=== PATIENT | male | born 1945 | race Caucasian/White ===

== ENCOUNTER 2021-06-07 13:14 | Emergency (ER) | payer OTHER ==
[~2021-06-07] VITALS: Ht 182.9 cm; Wt 64.0 kg
[2021-06-07 13:22] VITALS: BP 123/81
--- NOTE | 2021-06-07 13:49 | NUR ---
76/M SHONNA FROM [facility]. PER EMS STAFF CALLED 911 STATING "THEY RAN OUT OF OXYGEN TANK FOR PATIENT DUE TO INSURANCE REASONS. PT DENIES PAIN, DENIES SOB, DENIES FEVER/CHILLS, DENIES N/V/D, STATING "I FEEL GOOD." PATIENT PLACED ON BEDSIDE ROBOTYPE OPERATOR, DR. STEVENSON AWARE OF PATIENT.
[2021-06-07] MEDS ORDERED: FLUT1DSK2 IH (13:55)
[2021-06-07] MEDS ORDERED: FURO-572 PO (13:55)
[2021-06-07] MEDS ORDERED: VITB12 PO (13:55)
[2021-06-07] MEDS ORDERED: DIGO0.122 PO (13:55)
[2021-06-07] MEDS ORDERED: [UNRECOGNIZED DRUG - CODE] PO (13:55)
[2021-06-07] MEDS ORDERED: ATRN INH (13:55)
[2021-06-07] MEDS ORDERED: ACET-2619 PO ×2 (13:55)
[2021-06-07] MEDS ORDERED: METROPOLO (13:55)
[2021-06-07] MEDS ORDERED: MULT-1301 PO (13:55)
[2021-06-07] MEDS ORDERED: ALBU0.0912 INH (13:55)
[2021-06-07] MEDS ORDERED: DENO60SO SUBQ (13:55)
[2021-06-07] MEDS ORDERED: ASPI-1822 PO (13:55)
[2021-06-07] MEDS ORDERED: VITAMIN D PO (13:55)
[2021-06-07] MEDS ORDERED: VITA1TAB44 PO (13:55)
[2021-06-07] MEDS ORDERED: MONT10TA35 PO (13:55)
[2021-06-07] MEDS ORDERED: FLONAS NS (13:55)
[2021-06-07] MEDS ORDERED: DILT-135 PO (13:55)
[2021-06-07] MEDS ORDERED: DOCU-299 PO (13:55)
[2021-06-07] MEDS ORDERED: METROPOLOL PO (13:55)
[2021-06-07] MEDS ORDERED: TRAM50TA1 PO (13:55)
[2021-06-07] MEDS ORDERED: SIME80TA22 PO (13:56)
[2021-06-07] MEDS ORDERED: SENN-72 PO (13:56)
--- NOTE | 2021-06-07 14:24 | NUR ---
RT AT BEDSIDE
--- NOTE | 2021-06-07 14:34 | NUR ---
FOUND PT ON ROOM AIR, SPO2 RANGED FROM 91-94%.
--- NOTE | 2021-06-07 16:04 | NUR ---
DC PLANNING: ORDERS RECEIVED FOR O2 USE AT PATIENTS [facility]. PATIENTS CONCENTRATOR AND WC WERE PICKED UP BY [facility] DME AND RESPIRATORY FROM [facility]. BARTOLO SPOKE WITH RICKY AT [facility] ([phone] WHO STATES THAT THE ORDERING MD FOR THE O2 CANCELLED THE ORDER IN 2019. BARTOLO SENT THE O2 ORDERS AND SUPPORTING DOCUMENTATION TO [facility], DELIVERY IS EXPECTED LATER TODAY TO [facility] ORDERS FOR WC SENT TO [facility] WITH DELIVERY TO [facility] REQUESTED. BARTOLO SPOKE WITH MALKA AT [facility], DIRECTED HER TO CALL [facility] ED WHEN THE PATIENT'S O2 IS DELIVERED. BARTOLO SPOKE WITH THE TWO CONTRACTED NON-MEDICAL TRANSPORT AGENCIES, [employer] AND [employer], NEITHER ARE ABLE TO TRANSPORT THE PATIENT AFTER 6:30 PM TODAY. IF PATIENT IS READY TO RETURN TO [facility] TOMORROW THE FACILITY NEEDS TO BE CALLED TO PROVIDE TRANSPORT. IF THEY ARE UNABLE TO SHOE PARTS CASER THE PATIENT PLEASE USE [employer], PHONE NUMBER [phone], THEY ARE ABLE TO TRANSPORT WITH O2. PATIENT IS NON-AMBULATORY PER [facility], HE WILL NEED [facility]URNEY TRANSPORT WITH O2. IF THEY ARE UNABLE TO TRANSPORT PLEASE CALL [employer] [facility] AT [phone]. ABOVE WAS ENDORSED TO THE PATIENTS ER NURSE NILE.
--- NOTE | 2021-06-07 16:22 | NUR ---
SPOKE WITH CASE MANAGEMENT, STATED ANTONIO FOUNTAIN WILL CALL US WHEN OXYGEN IS DELIVERED THEN WE CAN SET UP TRANSPORT BACK TO FACILITY. [facility]- [phone] FOR TRANSPORT.
--- NOTE | 2021-06-07 17:05 | NUR ---
PATIENT APPEARS TO BE RESTING, ADJUSTED HOB AND PROVIDED BLANKET FOR COMFORT. PATIENT ON BEDSIDE MERCHANDISE FLOW TEAM MEMBER, WILL CONTINUE TO MONITOR.
--- NOTE | 2021-06-07 18:35 | NUR ---
RECEIVED CALL FROM FLOR FROM [facility] TO INFORM US THAT OXYGEN HAS ARRIVED AT FACILITY.
--- NOTE | 2021-06-07 18:41 | NUR ---
PATIENT PROVIDED WITH DINNER TRAY, ASSISTED UP IN SEATED POSITION TO EAT. ALL NEEDS MET AT THIS TIME.
--- NOTE | 2021-06-07 19:19 | NUR ---
Pt report given to EDUARDO RN. Transfer of care at this time.
--- NOTE | 2021-06-07 19:19 | NUR ---
RECEIVED REPORT FROM MILI ARIAS FOR CONTINUITY OF CARE
--- NOTE | 2021-06-07 19:29 | NUR ---
PROVIDED [facility] DONE FOR PATIENT AND CHANGED SHEETS. PATIENT TOLERATED WELL.
--- NOTE | 2021-06-07 20:55 | NUR ---
FLOR [employer] BARBIE FROM [facility] CALLED ABOUT TRANSPORT AND INFORMATION ON PATIENT.
--- NOTE | 2021-06-08 00:33 | NUR ---
Patient appears to be resting comfortably in bed-semifowers, with eyes closed. Vital Signs within normal limits. Respirations even and unlabored. no signs of distress noted. patient on monitor, safety measures in place and will continue to monitor pt.
--- NOTE | 2021-06-08 03:03 | NUR ---
Note favian in EDM - 06/08/21 at 0422 by MED pt is resting. Eyes are closed, equal rise and fall of chest wall.vss. pt is in stable condition. mother is at bedside. all needs met at this time.
--- NOTE | 2021-06-08 03:03 | NUR ---
pt is resting. Eyes are closed, equal rise and fall of chest wall.vss. pt is in stable condition. all needs met at this time.
--- NOTE | 2021-06-08 05:30 | NUR ---
PROVIDED [facility] DONE FOR PATIENT. PATIENT TOLERATED WELL.
--- NOTE | 2021-06-08 07:14 | NUR ---
Pt report given to VICENTE ARIAS. Transfer of care at this time.
--- NOTE | 2021-06-08 07:30 | NUR ---
received pt in [facility] aox4. denies pain or discomfort. pending transport back to facility. NAD. safety maintained.
--- NOTE | 2021-06-08 09:13 | NUR ---
pt eating breakfast no changes noted. safety maintained.
--- NOTE | 2021-06-08 09:48 | NUR ---
Mary ballesteros in ED - 06/08/21 at 1212 by [email or web address] IV 20 RIVERA ON L AC STARTED.
--- NOTE | 2021-06-08 13:01 | NUR ---
transport here for dc back to facility. report given. pt stable on dc.
[2021-06-08 13:03] VITALS: BP 105/70
--- NOTE | 2021-06-08 13:03 | NUR ---
spoke to Dayan at [facility] to make aware of transport back to facility.
== END 2021-06-08 13:00 ==
LOC: MED 13:14
DX: J44.9 Chronic obstructive pulmonary disease, unspecified (principal); R09.02 Hypoxemia; Z79.899 Other long term (current) drug therapy; Z79.82 Long term (current) use of aspirin
CPT/HCPCS: 99285

== ENCOUNTER 2021-07-03 12:24 | Inpatient (IN) | payer OTHER ==
[~2021-07-03] VITALS: Ht 180.3 cm; Wt 79.4 kg
[~2021-07-03 12:24] MED LIST: ACET-2619 PO; ALBU0.0912 INH; ASPI-1822 PO; ATRN INH; DENO60SO SUBQ; DIGO0.122 PO; DILT-135 PO; DOCU-299 PO; FLONAS NS; FLUT1DSK2 IH; FURO-572 PO; METROPOLO; METROPOLOL PO; MONT10TA35 PO; MULT-1301 PO; SENN-72 PO; SIME80TA22 PO; TRAM50TA1 PO; VITA1TAB44 PO; VITAMIN D PO; VITB12 PO; [UNRECOGNIZED DRUG - CODE] PO
[2021-07-03 12:38] VITALS: BP 100/69
--- NOTE | 2021-07-03 12:38 | NUR ---
BIBA TO BED
--- NOTE | 2021-07-03 13:00 | NUR ---
DR TURNER AT BEDSIDE.
--- NOTE | 2021-07-03 13:10 | NUR ---
X-RAY AT BEDSIDE.
[2021-07-03 13:19] LABS: BASOPHILS % (AUTO) 0.3 % (0.0-2.0); EOSINOPHILS # (AUTO) 0.1 K/uL (0-0.4); EOSINOPHILS % (AUTO) 0.7 % (0.0-4.0); HEMATOCRIT 38.6 % (36-52); HEMOGLOBIN 12.5 g/dL (12.0-18.0); LYMPHOCYTES # (AUTO) 0.9 K/uL (2.0-11.5); MEAN CORPUSCULAR HEMOGLOBIN 27 pg (27-31); MEAN CORPUSCULAR HGB CONC 32 g/dL (33-37); MEAN CORPUSCULAR VOLUME 83.9 fL (80-94); MONOCYTES # (AUTO) 0.5 K/uL (0.8-1.0); MONOCYTES % (AUTO) 6.4 % (1.7-9.3); NEUTROPHILS # (AUTO) 6.6 K/uL (1.8-7.7); NEUTROPHILS % (AUTO) 81.6 % (42.2-75.2); PLATELET COUNT (AUTO) 110 K/uL (140-450); RED CELL DISTRIBUTION WIDTH 14.4 % (11.6-13.7); WHITE BLOOD COUNT (AUTO) 8.1 K/uL (4.8-10.8)
[2021-07-03 13:40] LABS: ALBUMIN 3.6 g/dL (3.4-5.0); ANION GAP 5.6 (8-16); ASPARTATE AMINOTRANSFERASE 14 U/L (15-37); CHLORIDE 94 mmol/L (98-107); CREATININE 0.8 mg/dL (0.6-1.3); GLUCOSE 151 mg/dL (74-106); POTASSIUM 3.9 mmol/L (3.5-5.1); SODIUM SERUM 139 mmol/L (136-145); TOTAL BILIRUBIN 0.5 mg/dL (0.0-1.0); UREA NITROGEN, BLOOD 13 mg/dL (7-18)
[2021-07-03 13:42] LABS: CARBON DIOXIDE 43.3 mmol/L (21-32)
[2021-07-03] MEDS ORDERED: AZITHROMYCIN 500 MG in DEXTROSE 5% 250 ML IV ONE (13:45)
[2021-07-03] MEDS ORDERED: AZITHROMYCIN 500 MG INJ VIAL IV ONE (14:02)
[2021-07-03] MEDS ORDERED: cefTRIAXone 1,000 MG VIAL ONE (14:03)
[2021-07-03] MEDS ORDERED: PIPERACILLIN/TAZOBACTAM 3.375 GM in DEXTROSE 5% 50 ML IV SCH (16:00)
[2021-07-03 16:13] LABS: APPEARANCE,URINE CLEAR (CLEAR); BILIRUBIN,URINE NEGATIVE (NEGATIVE); BLOOD, URINE NEGATIVE (NEGATIVE); COLOR,URINE YELLOW (YELLOW); LEUKOCYTE ESTERASE ,URINE NEGATIVE (NEGATIVE); NITRITE, URINE NEGATIVE (NEGATIVE); PH,URINE 7.5 (5.0-9.0); UGLUCOSE NEGATIVE (NEGATIVE)
[2021-07-03] MEDS ORDERED: PIPERACILLIN/TAZOBACTAM 3.375 GM VIAL IV ONE ×2 (16:45→22:14)
--- NOTE | 2021-07-03 17:01 | NUR ---
GAVE REPORT TO AASHISH ARIAS. PT GOING TO ROOM 107B.
--- NOTE | 2021-07-03 17:02 | NUR ---
Chart checked and completed. The patient's care was reviewed and supervised by Carisa Bermudez RN.
--- NOTE | 2021-07-03 17:35 | NUR ---
PATIENT ARRIVED FROM ER. NO DISTRESS NOTED. ON O2 2L/MIN VIA NC. IV SITE INTACT, PATENT, ON SALINE LOCK. SKIN INTACT. AAOX1, VERBAL. ORIENTED PATIENT TO ROOM AND CALL LIGHT. SAFETY MEASURES IN PLACE, CALL LIGHT WITHIN REACH. WILL CONTINUE TO MONITOR.
--- NOTE | 2021-07-03 19:04 | NUR ---
PT WAS SEEN AND ASSESSED. FOUND PT ON 2L NC. SPO2 100%. TITRATED PT TO ROOM AIR. SPO2 94%. WILL CONTINUE TO MONITOR PT.
--- NOTE | 2021-07-03 19:30 | NUR ---
GAVE REPORT TO SADDLE STITCHER NURSE FOR CONTINUITY OF CARE. PATIENT IN STABLE CONDITION.
--- NOTE | 2021-07-03 20:00 | NUR ---
PATIENT RECEIVED IN BED, ALERT ORIENTED X1, VERBAL AND POLITE, SATURATION OF 96 AT 2LPM, NO NASAL FLARING NOR DISTRESS AT THIS TIME, COMFORTABLE IN HIS BED, OBSERVED HE BARELY TOUCHED HIS DINNER, STARTED ON HYDRATION NSS AT 80 ML/HOUR.
[2021-07-03] MEDS: NACL 0.9% 1,000 ML IV SCH (20:30)
[2021-07-03] MEDS ORDERED: DOCUSATE SODIUM 100 MG GELCAP PO PRN (20:30)
[2021-07-03] MEDS ORDERED: POTASSIUM CHLORIDE 10 MEQ TABER PO PRN (20:30)
[2021-07-03] MEDS ORDERED: ALBUTEROL SULFATE/IPRATROPIU 3 ML SOL IH PRN (20:30)
[2021-07-03] MEDS ORDERED: ACETAMINOPHEN 325 MG TAB PO PRN (20:30)
[2021-07-03] MEDS ORDERED: ZOLPIDEM 5 MG TAB PO PRN (20:30)
[2021-07-03] MEDS ORDERED: HYDROcodone/APAP 7.5/325 MG 1 TAB PO PRN (20:30)
[2021-07-03] MEDS ORDERED: guaiFENesin DM 200/20 MG-10 ML 10 ML UDC PO PRN (20:30)
[2021-07-03] MEDS ORDERED: ONDANSETRON 4 MG/2 ML VIAL IM/IVP PRN (20:30)
[2021-07-03] MEDS: MONTELUKAST SODIUM 10 MG TAB PO SCH (21:00)
[2021-07-03] MEDS: PIPERACILLIN/TAZOBACTAM 3.375 GM in DEXTROSE 5% 50 ML IV SCH (21:00)
[2021-07-03 21:41] LABS: CHOL/HDL RATIO 4.1 (1-4.5); FREE T4 (FREE THYROXINE) 1.11 ng/dL (0.76-1.46); PHOSPHORUS 3.3 mg/dL (2.5-4.9); THYROID STIMULATING HORMONE 1.11 uIU/mL (0.34-3.74)
[2021-07-03 21:46] LABS: PROTHROMBIN TIME 11.1 secs (10.8-13.4)
--- NOTE | 2021-07-03 22:00 | NUR ---
ALL DUE MEDICATIONS WERE GIVEN, PO AND IV TOLERATED WELL.
--- NOTE | 2021-07-03 23:15 | NUR ---
PT IN BED SLEEPING. ON 2L NC. SHOWS NO SIGNS OF DISTRESS. NS RUNNING AT 80. SAFETY MEASURES IN PLACE. WILL CONTINUE TO MONITOR.
[2021-07-04 04:00] VITALS: BP 94/56
[2021-07-04] MEDS: PIPERACILLIN/TAZOBACTAM 3.375 GM in DEXTROSE 5% 50 ML IV SCH ×3 (05:00→21:37)
--- NOTE | 2021-07-04 05:00 | NUR ---
PT RECEIVED ABX ORDERED AND TOLERATED IT WELL. CALL LIGHT WITHIN REACH. WILL CONTINUE TO MONITOR.
[2021-07-04] MEDS ORDERED: PIPERACILLIN/TAZOBACTAM 3.375 GM VIAL IV ONE (05:04)
--- NOTE | 2021-07-04 06:50 | NUR ---
PT OLD IV DISCONNECTED. REINSERTED A NEW IV ON THE LEFT FOREARM 20G.
--- NOTE | 2021-07-04 07:26 | NUR ---
ENDORSED REPORT TO AM NURSE FOR CONTINUITY OF CARE. PT STABLE.
[2021-07-04] MEDS: ALBUTEROL SULFATE/IPRATROPIU 3 ML SOL IH SCH ×3 (07:45→19:20)
--- NOTE | 2021-07-04 07:54 | NUR ---
ALL REPORTS WERE GIVEN, TRANSFER OF CARE ENDORSED.
--- NOTE | 2021-07-04 07:55 | NUR ---
RECEIVED PT REPORT BEDSIDE, ALERT ORIENTED X2, VERBAL AND POLITE, NC 2L. BREATHING IS EVEN AND UNLABORED. NO S/S OF DISTRESS, IV IS PATENT AND INTACT. NS AT 80. PT IS STABLE.
[2021-07-04 08:00] VITALS: BP 93/71
[2021-07-04 08:10] LABS: ANION GAP 6.1 (8-16); CHLORIDE 97 mmol/L (98-107); CREATININE 0.7 mg/dL (0.6-1.3); GLUCOSE 92 mg/dL (74-106); POTASSIUM 3.9 mmol/L (3.5-5.1); SODIUM SERUM 141 mmol/L (136-145); UREA NITROGEN, BLOOD 9 mg/dL (7-18)
[2021-07-04 08:24] LABS: BASOPHILS % (AUTO) 0.2 % (0.0-2.0); EOSINOPHILS # (AUTO) 0.1 K/uL (0-0.4); EOSINOPHILS % (AUTO) 0.9 % (0.0-4.0); HEMATOCRIT 34.9 % (36-52); HEMOGLOBIN 11.4 g/dL (12.0-18.0); LYMPHOCYTES # (AUTO) 1.1 K/uL (2.0-11.5); LYMPHOCYTES % (AUTO) 14.7 % (20.5-51.1); MEAN CORPUSCULAR HEMOGLOBIN 27 pg (27-31); MEAN CORPUSCULAR HGB CONC 33 g/dL (33-37); MEAN CORPUSCULAR VOLUME 83.3 fL (80-94); MONOCYTES # (AUTO) 0.6 K/uL (0.8-1.0); MONOCYTES % (AUTO) 7.7 % (1.7-9.3); NEUTROPHILS # (AUTO) 5.8 K/uL (1.8-7.7); NEUTROPHILS % (AUTO) 76.5 % (42.2-75.2); PLATELET COUNT (AUTO) 89 K/uL (140-450); RED BLOOD CELL COUNT(AUTO) 4.19 MIL/uL (4.20-6.10); RED CELL DISTRIBUTION WIDTH 14.4 % (11.6-13.7); WHITE BLOOD COUNT (AUTO) 7.5 K/uL (4.8-10.8)
[2021-07-04] MEDS: PANTOPRAZOLE 40 MG TABEC PO SCH (08:44)
[2021-07-04] MEDS: DIGOXIN 0.125 MG TAB PO SCH (08:44)
--- NOTE | 2021-07-04 08:48 | NUR ---
PATIENT HAS BEEN SCREENED AND CATEGORIZED MODERATE NUTRITION RISK. PATIENT WILL BE SEEN WITHIN 3-5 DAYS OF ADMISSION. 07/04/21 07/08/[address]
--- NOTE | 2021-07-04 08:52 | NUR ---
RECEIVED CALL FROM LAB ABOUT CRITICAL LAB CO2 LEVELS AT 41.8. REPORTED TO . NO CHANGES IN CARE AT THIS TIME.
[2021-07-04 08:54] LABS: CARBON DIOXIDE 41.8 mmol/L (21-32)
[2021-07-04] MEDS: NACL 0.9% 1,000 ML IV SCH ×2 (09:00→21:30)
[2021-07-04] MEDS: DILTIAZEM 120 MG CAPER PO SCH (09:00)
[2021-07-04] MEDS: FUROSEMIDE 20 MG TAB PO SCH (09:00)
[2021-07-04] MEDS: ASPIRIN 81 MG TAB.CHEW PO SCH (09:02)
--- NOTE | 2021-07-04 09:30 | NUR ---
HELD DILTIAZEM AND LASIX AT THIS TIME PER THE BLOOD PRESSURE OF 93/71. INFORMED MD ABOUT LOW BLOOD PRESSURE. MD ACKNOWLEDGED. NO CHANGES OF MEDS AT THIS TIME.
--- NOTE | 2021-07-04 10:30 | NUR ---
PT IS NOT COUGHING. HAVE NOT BEEN ABLE TO GET A SPUTUM SAMPLE FOR LAB. PT IS AOX2. PT IS CALM AND COOPERATIVE. PT BREATHING IS EVEN AND UNLABORED. NO SS OF DISTRESS. PT IS STABLE.
--- NOTE | 2021-07-04 12:00 | NUR ---
VS ARE HEART RATE AT 111 AND BP STILL LOW AT 97/58. PT IS BREATHING EVEN AND UNLABORED. NO S/S OF DISTRESS. PT REPORTS TO FEEL FINE WITH NO PAIN. PT IS STABLE AT 2L NC AND O2 AT 100%
--- NOTE | 2021-07-04 16:10 | NUR ---
DC PLANNING: THE PATIENT WAS BIBA FROM [facility] WITH C/O INCREASING CONFUSION AND LETHARGY. PATIENT ON CONTINUOUS O2 OF 4L AT [facility], FOUND TO BE HYPERCAPNEIC WITH CO2 LEVEL OF 63 ON ABG. CXR SHOWS MILD/MODERATE PLEURAL EFFUSION, PULMONOLOGY CONSULT ORDERED. STARTED ON ZOSYN IV AND DUONEBS, ON O2 2L WITH SATS OF 98%. ANTICIPATE DC TO SNF FOR P.T. AND MEDICAL MANAGEMENT, CM WILL SPEAK WITH PATIENT REGARDING FACILITY CHOICES AND WILL FOLLOW FOR NEEDS. Addendum: 07/05/21 at 1348 by Angelique Roche CM DC PLANNING: BARTOLO SPOKE WITH THE PATIENT AT BEDSIDE, PATIENT NOT CLEAR ABOUT THE YEAR, MONTH OR BIRTHDATE AND DID NOT KNOW WHAT CITY HE WAS IN. BARTOLO LET HIM KNOW THAT HE WAS BEING REFERRED TO [facility] FOR CONTINUED REHAB AND ASKED IF BARTOLO COULD SPEAK WITH HIS BROTHER LESLIE, PATIENT STATED YES. BARTOLO THEN SPOKE WITH GRACE AT [facility], SHE STATES THE PATIENT HAS BECOME INCREASINGLY CONFUSED AND THAT HIS PHYSICAL ACTIVITY HAS DECLINED, HE IS NOW BEDBOUND AND WAS NOT ABLE TO TOLERATE SITTING IN A WHEELCHAIR. [facility] HAD STARTED THE PROCESS FOR SENDING THE PATIENT TO [facility] AND HAVE SPOKEN WITH HIS BROTHER LESLIE WHO STATED THAT THEY SHOULD DO WHATEVER THEY NEED TO. BARTOLO SENT A REFERRAL TO [facility], PER THE ATTENDING MD PATIENT MIGHT DC TOMORROW IF CLINICALLY STABLE. CM WILL FOLLOW FOR NEEDS. BARTOLO Addendum: 07/05/21 at 1401 by Angelique Roche DC PLANNING: PATIENT ACCEPTED TO [facility], ROOM 52, DR GARCIA TO FOLLOW. NUMBER TO CALL REPORT IS [phone]. CALL [employer] FOR TRANSPORT, WILL NEED PATIENTS FACE SHEET INFORMATION, PHONE NUMBER IS [phone]. CM WILL FOLLOW FOR NEEDS.
--- NOTE | 2021-07-04 17:25 | NUR ---
RECEIVED PATIENT FROM JUANA BAH FOR CONTINUITY OF CARE.
--- NOTE | 2021-07-04 19:29 | NUR ---
PT WAS SEEN AND ASSESSED. PT WAS FOUND ON 1L NC WITH SPO2 OF 98%. PT IS IN NO RESPIRATORY DISTRESS AT THIS TIME. HHN TX GIVEN ORDERED AND PT TOLERATED WELL. NO ADVERSE REACTION AT THIS TIME. WILL CONTINUE TO MONITOR PT.
--- NOTE | 2021-07-04 19:30 | NUR ---
ENDORSED TO ASSEMBLIES AND INSTALLATIONS INSPECTOR NURSE FOR CONTINUITY OF CARE. PT IS STABLE.
--- NOTE | 2021-07-04 19:32 | NUR ---
RECEIVED PT REPORT FROM DAY SHIFT RN FOR CONTINUITY OF CARE.A&O X2, VERBAL. PT ON 2L O2 VIA NC. BREATHING IS EVEN AND UNLABORED. NO S/S OF DISTRESS, IV IS PATENT AND INTACT. ALL PRECAUTIONS IN PLACE. WILL CONTINUE TO MONITOR.
[2021-07-04 20:00] VITALS: BP 92/62
[2021-07-04] MEDS: MONTELUKAST SODIUM 10 MG TAB PO SCH (20:31)
--- NOTE | 2021-07-04 21:00 | NUR ---
PT WAS SOILED. CHANGED PT'S DIAPER. PT TOLERATED WELL.RADIOLOGY PERSONNEL CAME TO GET PT TO HAVE CT OF CHEST.
--- NOTE | 2021-07-04 21:45 | NUR ---
PT CAME BACK FROM RADIOLOGY DEPARTMENT. ADMINISTERED DUE MEDICATIONS. PT TOLERATED WELL. PT NOT IN ANY DISTRESS AT THIS TIME. ALL PRECAUTIONS IN PLACE. WILL CONTINUE TO MONITOR.
--- NOTE | 2021-07-04 23:35 | NUR ---
PT ASLEEP. VISIBLE CHEST RISE AND FALL NOTED. IV INFUSING WELL. ALL PRECAUTIONS IN PLACE. WILL CONTINUE TO MONITOR.
--- NOTE | 2021-07-05 01:03 | NUR ---
ROUNDS MADE. VISIBLE CHEST RISE AND FALL NOTED. PT DOES NOT LOOK LIKE IN ANY DISTRESS.ALL PRECAUTIONS IN PLACE. CALL LIGHT WITHIN REACH. WILL CONTINUE TO MONITOR.
[2021-07-05 04:00] VITALS: BP 95/55
--- NOTE | 2021-07-05 04:45 | NUR ---
ROUNDS MADE.VITAL SIGNS ARE STABLE. PT IS SOILED,CHANGED PT'S DIAPER. PT TOLERATED WELL. PT NOT IN ANY DISTRESS.CALL LIGHT WITHIN REACH.ALL PRECAUTIONS IN PLACE. WILL CONTINUE TO MONITOR.
[2021-07-05] MEDS: PIPERACILLIN/TAZOBACTAM 3.375 GM in DEXTROSE 5% 50 ML IV SCH ×3 (05:08→20:19)
[2021-07-05 06:11] LABS: BASOPHILS % (AUTO) 0.1 % (0.0-2.0); EOSINOPHILS # (AUTO) 0.1 K/uL (0-0.4); EOSINOPHILS % (AUTO) 0.8 % (0.0-4.0); HEMATOCRIT 33.9 % (36-52); HEMOGLOBIN 11.1 g/dL (12.0-18.0); LYMPHOCYTES # (AUTO) 0.7 K/uL (2.0-11.5); LYMPHOCYTES % (AUTO) 10.8 % (20.5-51.1); MEAN CORPUSCULAR HEMOGLOBIN 28 pg (27-31); MEAN CORPUSCULAR HGB CONC 33 g/dL (33-37); MEAN CORPUSCULAR VOLUME 83.6 fL (80-94); MONOCYTES # (AUTO) 0.4 K/uL (0.8-1.0); MONOCYTES % (AUTO) 5.3 % (1.7-9.3); NEUTROPHILS # (AUTO) 5.7 K/uL (1.8-7.7); PLATELET COUNT (AUTO) 89 K/uL (140-450); RED BLOOD CELL COUNT(AUTO) 4.06 MIL/uL (4.20-6.10); RED CELL DISTRIBUTION WIDTH 14.5 % (11.6-13.7); WHITE BLOOD COUNT (AUTO) 6.9 K/uL (4.8-10.8)
[2021-07-05 06:23] LABS: ANION GAP 4.5 (8-16); CHLORIDE 101 mmol/L (98-107); CREATININE 0.7 mg/dL (0.6-1.3); GLUCOSE 100 mg/dL (74-106); POTASSIUM 3.6 mmol/L (3.5-5.1); SODIUM SERUM 142 mmol/L (136-145); UREA NITROGEN, BLOOD 8 mg/dL (7-18)
--- NOTE | 2021-07-05 06:37 | NUR ---
PT STABLE. NO ACUTE EVENTS THROUGHOUT THE NIGHT. PT HAS NO COMPLAINS AT THIS TIME. PT NOT IN ANY DISTRESS. BREATHING EQUAL AND UNLABORED. ALL NEEDS ATTENDED.CALL LIGHT WITHIN REACH. WILL ENDORSE TO AM SHIFT NURSE.
[2021-07-05 06:41] LABS: CARBON DIOXIDE 40.1 mmol/L (21-32)
--- NOTE | 2021-07-05 07:21 | NUR ---
ENDORSED TO AM SHIFT NURSE FOR CONTINUITY OF CARE. PT IS STABLE.
[2021-07-05] MEDS: ALBUTEROL SULFATE/IPRATROPIU 3 ML SOL IH SCH ×3 (07:23→19:33)
--- NOTE | 2021-07-05 07:23 | NUR ---
RECEIVED REPORT FROM MOTION DESIGNER RN . PATIENT IS SLEEPING CALMLY, NO S/S OF RESP. DISTRESS NOTED.BREATHINGS EVEN AND UNLABORED ON NC 2LPM. ALL SAFETY MEASURES IN PLACED,WILL CONTINUE TO MONITOR THE PATIENT.
[2021-07-05] MEDS: ASPIRIN 81 MG TAB.CHEW PO SCH (08:42)
[2021-07-05] MEDS: DIGOXIN 0.125 MG TAB PO SCH (08:45)
[2021-07-05] MEDS: DILTIAZEM 120 MG CAPER PO SCH (09:00)
[2021-07-05] MEDS: FUROSEMIDE 20 MG TAB PO SCH (09:00)
--- NOTE | 2021-07-05 09:00 | NUR ---
PATIENT EATING BREAKFAST AT THIS TIME. ALERT ORIENTED X2. BREATHING NORMAL. ADMINISTERED SCHEDULED MEDICATION. TOLERATED WELL. ALL SAFETY MEASURES IN PLACED. WILL CONTUE TO MONITOR THE PATIENT.
[2021-07-05] MEDS: PANTOPRAZOLE 40 MG TABEC PO SCH (09:08)
[2021-07-05] MEDS: NACL 0.9% 1,000 ML IV SCH ×2 (09:55→21:17)
--- NOTE | 2021-07-05 11:00 | NUR ---
MADE ROUND AND CHECKED ON PATIENT. PT. RESTING IN THE BED COMFORTABLY, RESP. EVEN AND UNLABORED. ALL SAFETY MEASURES PROVIDED. CALL LIGHT WITHIN REACH. BED IN LOW POSITION. WILL CONTINUE TO MONITOR THE PATIENT.
[2021-07-05 12:00] VITALS: BP 97/62
--- NOTE | 2021-07-05 12:37 | NUR ---
COVID SWAB OBTAINED PER BAND LOG MILL AND CARRIAGE OPERATOR FOR SNF PLACEMENT. PT IS CURRENT RECEIVING BREATHING TREATMENT, WITH RT AT BEDSIDE.
--- NOTE | 2021-07-05 12:38 | NUR ---
ROUNDED TO THE PATIENT'S ROOM. PATIENT EATING LUNCH. STABLE. SAFETY MEASURES IN PLACED. WILL CONTINUE TO MONITOR THE PATIENT.
--- NOTE | 2021-07-05 15:16 | NUR ---
MADE ROUND , PATIENT ALERT AND AWAKE. 2D ECHO PROCEDURE GOING ON. PT. STABLE , BREATHINGS NORMAL AND UNLABORED. SAFETY MEASURES IN PLACED. WILL CONTINUE TO MONITOR THE PATIENT.
--- NOTE | 2021-07-05 16:33 | NUR ---
ECHO FINISHED, CALLED RADIOLOGY TO INFORM THEM PT IS READY TO GET CT BY [facility]
--- NOTE | 2021-07-05 17:11 | NUR ---
PT TAKEN TO RADIOLOGY IN STABLE CONDITION. PT ON 2L OXYGEN NC
--- NOTE | 2021-07-05 18:04 | NUR ---
PT IS STABLE IN BED WITH NO ACUTE S/S OF DISTRESS. ALL SAFETY MEASURES IN PLACE. CALL LIGHT WITHIN REACH. WILL CONTINUE TO MONITOR.
--- NOTE | 2021-07-05 18:50 | NUR ---
PATIENT REMAINED STABLE ,ALL NEEDS HAVE BEEN MET. WILL ENDORSE TO PM SHIFT RN.
--- NOTE | 2021-07-05 19:30 | NUR ---
RECEIVED BEDSIDE REPORT FROM AM NURSE. PATIENT IS AWAKE RESTING COMFORTABLY. ON 2L NC TOLERATING WELL. NO S/S OF RESPIRATORY DISTRESS. BREATHING EVEN UNLABORED. SKIN WARM AND DRY TO THE TOUCH. IVF NS INFUSING AT 80 ML ON THE LFA. ALL SAFETY MEASURES ARE IN PLACE. CALL LIGHT WITHIN REACH. WILL CONTINUE TO MONITOR.
[2021-07-05 20:00] VITALS: BP 95/64
[2021-07-05] MEDS: MONTELUKAST SODIUM 10 MG TAB PO SCH (20:20)
--- NOTE | 2021-07-05 20:20 | NUR ---
SCHEDULED 2100 MEDS GIVEN ORDERED.
--- NOTE | 2021-07-06 00:16 | NUR ---
PATIENT ROUNDING, PT IS SLEEPING. NO SOB NOTED. CALL LIGHT WITHIN REACH. SAFETY MEASURES IN PLACE.
[2021-07-06] MEDS: NACL 0.9% 1,000 ML IV SCH (00:45)
[2021-07-06 04:00] VITALS: BP 98/52
[2021-07-06] MEDS: PIPERACILLIN/TAZOBACTAM 3.375 GM in DEXTROSE 5% 50 ML IV SCH ×3 (04:14→22:56)
--- NOTE | 2021-07-06 04:14 | NUR ---
ADMINISTERED ZOSYN ORDERED. PATIENT IS AWAKE. NO COMPLAINTS OF PAIN/DISCOMFORT AT THIS TIME. .
[2021-07-06 06:43] LABS: BASOPHILS % (AUTO) 0.4 % (0.0-2.0); EOSINOPHILS # (AUTO) 0.1 K/uL (0-0.4); EOSINOPHILS % (AUTO) 1.2 % (0.0-4.0); HEMATOCRIT 32.1 % (36-52); HEMOGLOBIN 10.6 g/dL (12.0-18.0); LYMPHOCYTES # (AUTO) 0.9 K/uL (2.0-11.5); LYMPHOCYTES % (AUTO) 12.5 % (20.5-51.1); MEAN CORPUSCULAR HEMOGLOBIN 28 pg (27-31); MEAN CORPUSCULAR HGB CONC 33 g/dL (33-37); MEAN CORPUSCULAR VOLUME 83.9 fL (80-94); MONOCYTES # (AUTO) 0.5 K/uL (0.8-1.0); MONOCYTES % (AUTO) 6.9 % (1.7-9.3); NEUTROPHILS # (AUTO) 5.4 K/uL (1.8-7.7); PLATELET COUNT (AUTO) 91 K/uL (140-450); RED BLOOD CELL COUNT(AUTO) 3.83 MIL/uL (4.20-6.10); RED CELL DISTRIBUTION WIDTH 14.7 % (11.6-13.7); WHITE BLOOD COUNT (AUTO) 6.9 K/uL (4.8-10.8)
[2021-07-06] MEDS: ALBUTEROL SULFATE/IPRATROPIU 3 ML SOL IH SCH ×3 (07:04→19:09)
--- NOTE | 2021-07-06 07:27 | NUR ---
BEDSIDE ENDORSEMENT GIVEN TO AM RN. PATIENT IS STABLE.
--- NOTE | 2021-07-06 07:28 | NUR ---
RECEIVED BEDSIDE REPORT FROM COMMUNITY LEADER NURSE FOR CONTINUITY OF CARE. PT IS A&OX3. ON 2L NC WITH BREATHING UNLABORED AND EVEN. SKIN IS WARM AND DRY. SKIN DRY AND INTACT.ALL PRECAUTIONS IN PLACE.
[2021-07-06 07:56] LABS: ANION GAP 8.7 (8-16); CARBON DIOXIDE 33.2 mmol/L (21-32); CHLORIDE 104 mmol/L (98-107); CREATININE 0.7 mg/dL (0.6-1.3); GLUCOSE 95 mg/dL (74-106); POTASSIUM 3.9 mmol/L (3.5-5.1); SODIUM SERUM 142 mmol/L (136-145); UREA NITROGEN, BLOOD 7 mg/dL (7-18)
[2021-07-06] MEDS: DILTIAZEM 120 MG CAPER PO SCH (09:00)
[2021-07-06] MEDS: FUROSEMIDE 20 MG TAB PO SCH (09:00)
[2021-07-06 09:37] LABS: T4 (THYROXINE) 6.5 ug/dL (4.5 - 12.0)
[2021-07-06] MEDS: PANTOPRAZOLE 40 MG TABEC PO SCH (09:54)
[2021-07-06] MEDS: DIGOXIN 0.125 MG TAB PO SCH (09:54)
[2021-07-06] MEDS: ASPIRIN 81 MG TAB.CHEW PO SCH (09:54)
[2021-07-06 12:00] VITALS: BP 97/53
--- NOTE | 2021-07-06 13:00 | NUR ---
PT GIVEN ANTIBIOTICS. PT IS BREATHING UNLABORED AND EVEN. NO SS OF DISTRESS. PT IS STABLE.
--- NOTE | 2021-07-06 19:15 | NUR ---
PT ENDORSED TO TARIFF INSPECTOR NURSE AT BEDSIDE FOR CONTINUITY OF CARE.
--- NOTE | 2021-07-06 19:30 | NUR ---
RECD. RESTING IN BED, AWAKE, A/OX3. ABLE TO VERBALIZED NEEDS. RESPIRATION EVEN AND UNLABORED. 0N 02 AT 1 LITER VIA N/C, 02 SAT - 98%. IV OF NS INFUSING AT 40 ML/HR, RIGHT FOREARM G22. SAFETY MEASURES ENFORCED. BED IN THE LOWEST POSITION, SIDE RAILS UP, CALL LIGHT IN REACH. BED ON ALARM. INSTRUCTED PATIENT TO USE CALL LIGHT WHEN NEEDING HELP. MEDICINES AND CARE FOR THE NIGHT DISCUSSED WITH PATIENT. VERBALIZED UNDERSTANDING. DENIES PAIN 0/10.
[2021-07-06 20:00] VITALS: BP 91/68
--- NOTE | 2021-07-06 20:00 | NUR ---
Patient's Plan of Care was discussed and reviewed with RACE RELATIONS PROFESSOR: SARITA AYALA
[2021-07-06] MEDS: MONTELUKAST SODIUM 10 MG TAB PO SCH (20:55)
--- NOTE | 2021-07-06 20:55 | NUR ---
SCHEDULED MEDICATION FOR THE NIGHT ADMINISTERED. TOLERATED WELL.
--- NOTE | 2021-07-06 23:00 | NUR ---
INCONTINENT. VOIDED LARGE AMOUNT IN THE DIAPER, CLEANSED AND MADE COMFORTABLE IN BED WITH PILLOWS AND WAR BLANKET.
[2021-07-07] MEDS: NACL 0.9% 1,000 ML IV SCH ×2 (00:45→07:31)
--- NOTE | 2021-07-07 01:00 | NUR ---
STILL AWAKE IN BED. RESPIRATION EVEN AND UNLABORED. NO COMPLAINT OF PAIN 0/10.
--- NOTE | 2021-07-07 03:00 | NUR ---
CHECKED PATIENT, SLEEPING COMFORTABLY IN BED. RESPIRATION EVEN AND UNLABORED.
[2021-07-07 04:00] VITALS: BP 105/64
[2021-07-07] MEDS: PIPERACILLIN/TAZOBACTAM 3.375 GM in DEXTROSE 5% 50 ML IV SCH ×2 (05:00→13:16)
--- NOTE | 2021-07-07 05:00 | NUR ---
AWAKE IN BED, DIAPER CHANGED AND REPOSITIONED IN BED BY RESEARCH ASSOCIATE QUALITY CONTROL QC. SAFETY MAINTAINED DURING THE SHIFT.
[2021-07-07 06:40] LABS: BASOPHILS % (AUTO) 0.4 % (0.0-2.0); EOSINOPHILS # (AUTO) 0.1 K/uL (0-0.4); EOSINOPHILS % (AUTO) 1.2 % (0.0-4.0); HEMATOCRIT 33.5 % (36-52); LYMPHOCYTES # (AUTO) 1.1 K/uL (2.0-11.5); MEAN CORPUSCULAR HEMOGLOBIN 28 pg (27-31); MEAN CORPUSCULAR HGB CONC 33 g/dL (33-37); MEAN CORPUSCULAR VOLUME 83.9 fL (80-94); MONOCYTES # (AUTO) 0.6 K/uL (0.8-1.0); MONOCYTES % (AUTO) 7.4 % (1.7-9.3); NEUTROPHILS # (AUTO) 5.9 K/uL (1.8-7.7); PLATELET COUNT (AUTO) 95 K/uL (140-450); RED BLOOD CELL COUNT(AUTO) 3.99 MIL/uL (4.20-6.10); RED CELL DISTRIBUTION WIDTH 14.9 % (11.6-13.7); WHITE BLOOD COUNT (AUTO) 7.6 K/uL (4.8-10.8)
[2021-07-07] MEDS: ALBUTEROL SULFATE/IPRATROPIU 3 ML SOL IH SCH ×2 (07:03→13:09)
[2021-07-07 07:17] LABS: ANION GAP 8.4 (8-16); CARBON DIOXIDE 34.8 mmol/L (21-32); CHLORIDE 101 mmol/L (98-107); CREATININE 0.7 mg/dL (0.6-1.3); GLUCOSE 98 mg/dL (74-106); POTASSIUM 4.2 mmol/L (3.5-5.1); SODIUM SERUM 140 mmol/L (136-145); UREA NITROGEN, BLOOD 7 mg/dL (7-18)
--- NOTE | 2021-07-07 07:20 | NUR ---
CONDITION REMAIN STABLE. ENDORSED TO AM SHIFT NURSE FOR CONTINUITY OF CARE.
--- NOTE | 2021-07-07 07:42 | NUR ---
PATIENT RECEIVED FROM ROLLER TURNER NURSE . PT RESTING IN BED WATCHING TV. ALL SAFETY MEASURES ARE IN PLACE.
--- NOTE | 2021-07-07 08:38 | NUR ---
PATIENT ASSESSED, ALL EXTREMITIES STRONG, BOWEL SOUNDS PRESENT NON-TENDER, NO PAINFUL URINATION . DENIES CHEST PAIN , SOB DIZZINESS, OR HEAD ACHES.
[2021-07-07] MEDS: FUROSEMIDE 20 MG TAB PO SCH (08:41)
[2021-07-07] MEDS: DILTIAZEM 120 MG CAPER PO SCH (08:41)
[2021-07-07] MEDS: ASPIRIN 81 MG TAB.CHEW PO SCH (08:42)
[2021-07-07] MEDS: PANTOPRAZOLE 40 MG TABEC PO SCH (08:42)
[2021-07-07] MEDS: DIGOXIN 0.125 MG TAB PO SCH (08:42)
--- NOTE | 2021-07-07 08:44 | NUR ---
MEDICATIONS GIVEN PER MD ORDER. PT EDUCATED AND VERBALIZED UNDERSTANDING , PATIENT ORIENTED TO ROOM, BED ALARM, BED CONTROLS , AND HOSPITAL POLICIES REGARDING STAY. PATIENT DENIES ANY QUESTIONS OR CONCERNS AT THIS TIME . PATIENTS BED IN LOWEST POSITION, NON SLIP SOCKS ON , ALL BELONGINGS WITHIN REACH , CALL LIGHT WITHIN REACH . ALL SAFETY MEASURES ARE IN PLACE.
[2021-07-07] MEDS ORDERED: AMOX-1230 PO (09:51)
[2021-07-07 12:00] VITALS: BP 106/70
--- NOTE | 2021-07-07 14:13 | NUR ---
TALKED TO EDVIN TO [facility], PATIENT WILL BE SKIVER UPPERS OR LININGS AROUND 1700, PER RAQUEL IN COMMUNITY EXTENDED PATIENT CAN GO TO ROOM 52 C,
--- NOTE | 2021-07-07 14:46 | NUR ---
TALKED TO BROTHER LESLIE MADE AWARE PT WILL BE TRANSFER TO [facility] TODAY AT 5PM
--- NOTE | 2021-07-07 14:53 | NUR ---
GAVE REPORT TO RUDDY STANLEY FROM [facility] [phone]
--- NOTE | 2021-07-07 16:25 | NUR ---
PATIENT DISCHARGE INSTRUCTIONS COMPLETE. PT VERBALIZED UNDERSTANDING FOR CONTINUITY OF CARE , ALL SAFTEY MEASURES ARE IN PLACE.
--- NOTE | 2021-07-07 17:33 | NUR ---
PT DISCHARGED EFT IN STABLE CONDITION ALL SAFETY MEASURES ARE IN PLACE. IV REMOVED CANULA INTACT ,I D BAND REMOVED
== END 2021-07-07 17:40 | DRG 177 ==
LOC: MED 12:24 → MTU 15:14
PROVIDERS: ADMIT Family Medicine; ATTEND Family Medicine
DX: J69.0 Pneumonitis due to inhalation of food and vomit (principal); G93.41 Metabolic encephalopathy; J96.22 Acute and chronic respiratory failure with hypercapnia; J96.21 Acute and chronic respiratory failure with hypoxia; J44.0 Chronic obstructive pulmonary disease with (acute) lower respiratory infection; I42.9 Cardiomyopathy, unspecified; J44.1 Chronic obstructive pulmonary disease with (acute) exacerbation; Z20.822 Contact with and (suspected) exposure to COVID-19; I50.9 Heart failure, unspecified; I48.91 Unspecified atrial fibrillation; D69.6 Thrombocytopenia, unspecified; E78.5 Hyperlipidemia, unspecified; G30.9 Alzheimer's disease, unspecified; F02.80 Dementia in other diseases classified elsewhere, unspecified severity, without behavioral disturbance, psychotic disturbance, mood disturbance, and anxiety; Z79.82 Long term (current) use of aspirin; Z79.899 Other long term (current) drug therapy
CPT/HCPCS: 36415; 36600; 70450; 71045; 71250; 80048; 80053; 80162; 81003; 82140; 82150; 82803; 83036; 83605; 83690; 83735; 83880; 84100; 84436; 84439; 84443; 84479; 84484; 85025; 85610; 85730; 87040; 87081; 93880; 94640; 96365; 96367; 97112; 97116; 97163-GP; 97530; 99285; J0456; J0696; J2543; J7060; Q0092

== ENCOUNTER 2021-10-12 21:59 | Emergency (ER) | payer OTHER ==
[~2021-10-12] VITALS: Ht 180.3 cm; Wt 79.4 kg
[~2021-10-12 21:59] MED LIST changes: +AMOX-1230 PO; -METROPOLO
--- NOTE | 2021-10-12 22:08 | NUR ---
biba taken to bed #8
[2021-10-12 22:09] VITALS: BP 110/78
--- NOTE | 2021-10-12 22:30 | NUR ---
seen and examined by Solomon with orders and carried out.
--- NOTE | 2021-10-12 22:45 | NUR ---
Blood for labwork drawn from left forearm. Patient tolerated well.
[2021-10-12 23:00] LABS: BASOPHILS # (AUTO) 0.1 K/uL (0.00-0.22); BASOPHILS % (AUTO) 0.4 % (0.0-2.0); HEMATOCRIT 34.7 % (36-52); HEMOGLOBIN 11.2 g/dL (12.0-18.0); LYMPHOCYTES # (AUTO) 0.3 K/uL (2.0-11.5); LYMPHOCYTES % (AUTO) 2.5 % (20.5-51.1); MEAN CORPUSCULAR HEMOGLOBIN 27 pg (27-31); MEAN CORPUSCULAR HGB CONC 32 g/dL (33-37); MEAN CORPUSCULAR VOLUME 85.3 fL (80-94); MONOCYTES # (AUTO) 0.3 K/uL (0.8-1.0); MONOCYTES % (AUTO) 2.4 % (1.7-9.3); NEUTROPHILS # (AUTO) 11.9 K/uL (1.8-7.7); NEUTROPHILS % (AUTO) 94.7 % (42.2-75.2); PLATELET COUNT (AUTO) 110 K/uL (140-450); RED BLOOD CELL COUNT(AUTO) 4.07 MIL/uL (4.20-6.10); RED CELL DISTRIBUTION WIDTH 15.4 % (11.6-13.7); WHITE BLOOD COUNT (AUTO) 12.6 K/uL (4.8-10.8)
--- NOTE | 2021-10-12 23:00 | NUR ---
urine spicemen snt to lab
[2021-10-12 23:12] LABS: APPEARANCE,URINE CLEAR (CLEAR); BILIRUBIN,URINE NEGATIVE (NEGATIVE); BLOOD, URINE NEGATIVE (NEGATIVE); COLOR,URINE YELLOW (YELLOW); LEUKOCYTE ESTERASE ,URINE NEGATIVE (NEGATIVE); NITRITE, URINE NEGATIVE (NEGATIVE); UGLUCOSE NEGATIVE (NEGATIVE)
--- NOTE | 2021-10-12 23:16 | NUR ---
[facility] CAOLLED FOR TELEPSYCH AND TOLD EVAL WILL BE AT [phone] 10/13/21 FACESHEET FAXED TO [facility] AT [phone]
[2021-10-12 23:50] LABS: BARBITURATE, URINE NEGATIVE ng/ml (NEG <=200); BENZODIAZEPINE, URINE NEGATIVE ng/mL (NEG <=200); CANNABINOID, URINE NEGATIVE ng/mL (NEG <=50); COCAINE, URINE NEGATIVE ng/mL (NEG <=300); OPIATE, URINE NEGATIVE ng/mL (NEG <=2000); PHENCYCLIDINE SCREEN,URINE NEGATIVE ng/mL (NEG <=25)
[2021-10-12 23:54] LABS: ALBUMIN 3.7 g/dL (3.4-5.0); ANION GAP 4.8 (8-16); ASPARTATE AMINOTRANSFERASE 13 U/L (15-37); CARBON DIOXIDE 39.7 mmol/L (21-32); CHLORIDE 93 mmol/L (98-107); CREATININE 0.9 mg/dL (0.6-1.3); GLUCOSE 139 mg/dL (74-106); POTASSIUM 4.5 mmol/L (3.5-5.1); SODIUM SERUM 133 mmol/L (136-145); TOTAL BILIRUBIN 0.3 mg/dL (0.0-1.0); UREA NITROGEN, BLOOD 21 mg/dL (7-18)
[2021-10-12 23:57] LABS: ACETAMINOPHEN < 0.5 ug/ml (10-30); SALICYLATE < 2.8 mg/dL (2.8-20.0)
--- NOTE | 2021-10-13 00:30 | NUR ---
Patient comfortable in bed. Vital Signs within normal limits. Respirations even and unlabored.
--- NOTE | 2021-10-13 02:00 | NUR ---
Patient sleeping comfortably in bed. Vital Signs within normal limits. Respirations even and unlabored with n/c at 2L of 02
--- NOTE | 2021-10-13 04:20 | NUR ---
swabs for radha, novel sent to lab
--- NOTE | 2021-10-13 06:26 | NUR ---
CLINICALS AND FACESHEET FAXED TO [facility]
--- NOTE | 2021-10-13 07:21 | NUR ---
report given to Shelby MIMS
--- NOTE | 2021-10-13 07:22 | NUR ---
REPORT RECEIVED FROM JUANA LOZADA FOR PATIENT CONTINUITY OF CARE.
--- NOTE | 2021-10-13 07:45 | NUR ---
DR. Beaver EVALUATING PATIENT VIA TELEPSYCH
--- NOTE | 2021-10-13 08:20 | NUR ---
PATIENT PROVIDED WITH BREAKFAST TRAY AT BEDSIDE.
--- NOTE | 2021-10-13 08:40 | NUR ---
PATIENT COMPLETED 80% OF BREAKFAST TRAY AT THIS TIME.
--- NOTE | 2021-10-13 09:50 | NUR ---
PATIENT ASLEEP IN BED, RESPIRATIONS EVEN AND UNLABORED. SAFETY MEASURES CONTINUED IN PLACE. WILL CONTINUE TO MONITOR.
--- NOTE | 2021-10-13 10:25 | NUR ---
PATIENT SOILED IN BED, PROVIDED [facility] AND NEW DIAPER AT BEDSIDE.
--- NOTE | 2021-10-13 11:54 | NUR ---
PATIENT PROVIDED WITH LUNCH TRAY AT BEDSIDE
--- NOTE | 2021-10-13 13:30 | NUR ---
REPORT CALLED INTO [facility]. SPOKE WITH TARA STANLEY RN FOR PATIENT CONTINUITY OF CARE.
[2021-10-13 13:31] VITALS: BP 115/69
--- NOTE | 2021-10-13 13:31 | NUR ---
Patient discharged with v/s stable. Written and verbal after care instructions ABOUT MANAGING ANGER AND ALZHEIMER DISEASE CAREGIVER GUIDE given and explained. Patient verbalized understanding. Ambulance Transport with to residential. All questions addressed prior to discharge. Advised to follow up with PMD. REPORT CALLED TO TARA STANLEY RN.
--- NOTE | 2021-10-13 13:32 | NUR ---
The patient's care was reviewed and supervised by Judy Patterson RN.
== END 2021-10-13 13:31 | disposition home or self-care (01) ==
LOC: MED 21:59
DX: R45.851 Suicidal ideations (principal); Z20.822 Contact with and (suspected) exposure to COVID-19; J44.9 Chronic obstructive pulmonary disease, unspecified; F03.90 Unspecified dementia, unspecified severity, without behavioral disturbance, psychotic disturbance, mood disturbance, and anxiety; I10 Essential (primary) hypertension; Z79.899 Other long term (current) drug therapy; Z79.82 Long term (current) use of aspirin
CPT/HCPCS: 36415; 80053; 80305; 81003; 84484; 85025; 87426; 99285; G0480; G0482; U0003

== ENCOUNTER 2021-12-05 09:08 | Inpatient (IN) | payer OTHER ==
[~2021-12-05] VITALS: Ht 175.3 cm; Wt 67.6 kg
[~2021-12-05 09:08] MED LIST changes: -AMOX-1230 PO
[2021-12-05 09:25] VITALS: BP 107/65
--- NOTE | 2021-12-05 09:34 | NUR ---
76 Y/O AMLE BIBA FROM [facility] C/O SYNCOPE, NOTED WITH BASELINE GCS BY EMS, PER FACILITY PT WAS FOUND "UNCONSCIOUS" BP WAS 88/43, [facility] 115/70 BP AT BEDSIDE AT 107/65. BASELINE PT IS ABLE TO COMMUNICATE NEEDS, PT NOW A/OX1, ORIENTED TO SELF, ABLE TO COMMUNICATE NEEDS. PT UNABLE TO VERBALIZE WHERE HE IS, WHAT DATE/TIME OR WHAT IS HAPPENING. 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 NKA
--- NOTE | 2021-12-05 09:48 | NUR ---
DR CHING AT BEDSIDE FOR EVAL
--- NOTE | 2021-12-05 09:48 | NUR ---
CALLED [facility], SPOKE TO MARBIN MIMS STATED THAT PT IS NORMALLY ON 3LPM, SATTING AT 96-98%
--- NOTE | 2021-12-05 09:53 | NUR ---
DR CHING SPEAKING TO MARBIN MIMS OF [facility], REQUESTING THAT PCP REASSESS PT OXYGEN REQUIREMENTS PATIENT IS SATTING AT 92%-95% ON ROOM AIR.
--- NOTE | 2021-12-05 09:59 | NUR ---
PT TAKEN TO CT VIA [facility]
--- NOTE | 2021-12-05 10:12 | NUR ---
[facility]
[2021-12-05 10:49] LABS: BASOPHILS # (AUTO) 0.1 K/uL (0.00-0.22); BASOPHILS % (AUTO) 0.4 % (0.0-2.0); EOSINOPHILS % (AUTO) 0.1 % (0.0-4.0); HEMATOCRIT 40.6 % (36-52); HEMOGLOBIN 12.7 g/dL (12.0-18.0); LYMPHOCYTES # (AUTO) 0.6 K/uL (2.0-11.5); MEAN CORPUSCULAR HEMOGLOBIN 28 pg (27-31); MEAN CORPUSCULAR HGB CONC 31 g/dL (33-37); MEAN CORPUSCULAR VOLUME 88.2 fL (80-94); MONOCYTES # (AUTO) 0.7 K/uL (0.8-1.0); NEUTROPHILS # (AUTO) 12.6 K/uL (1.8-7.7); NEUTROPHILS % (AUTO) 90.5 % (42.2-75.2); PLATELET COUNT (AUTO) 123 K/uL (140-450); WHITE BLOOD COUNT (AUTO) 13.9 K/uL (4.8-10.8)
[2021-12-05 11:45] LABS: ALBUMIN 3.7 g/dL (3.4-5.0); ASPARTATE AMINOTRANSFERASE 11 U/L (15-37); CHLORIDE 94 mmol/L (98-107); CREATININE 0.9 mg/dL (0.6-1.3); GLUCOSE 125 mg/dL (74-106); POTASSIUM 5.5 mmol/L (3.5-5.1); SODIUM SERUM 142 mmol/L (136-145); TOTAL BILIRUBIN 0.4 mg/dL (0.0-1.0); UREA NITROGEN, BLOOD 22 mg/dL (7-18)
[2021-12-05 12:10] LABS: ANION GAP 6.3 (8-16); CARBON DIOXIDE 47.2 mmol/L (21-32)
--- NOTE | 2021-12-05 12:34 | NUR ---
JM WALKED TO LAB. VIDA ANDERSON.
[2021-12-05] MEDS ORDERED: ACETAMINOPHEN 325 MG TAB PO PRN (12:35)
[2021-12-05] MEDS ORDERED: SODIUM PHOS / POTASSIUM PHOS 1 PKT PDR PO PRN (12:35)
[2021-12-05] MEDS ORDERED: POTASSIUM CHLORIDE 10 MEQ TABER PO PRN (12:35)
[2021-12-05] MEDS ORDERED: DOCUSATE SODIUM 100 MG GELCAP PO PRN (12:35)
[2021-12-05] MEDS ORDERED: MORPHINE SULFATE 2 MG/ML SYR IVP PRN (12:35)
[2021-12-05] MEDS ORDERED: ONDANSETRON 4 MG/2 ML VIAL IM/IVP PRN (12:35)
[2021-12-05] MEDS ORDERED: HYDROcodone/APAP 5/325 MG 1 TAB TAB PO PRN (12:35)
[2021-12-05] MEDS ORDERED: MAGNESIUM OXIDE 400 MG TAB PO PRN (12:35)
[2021-12-05] MEDS ORDERED: VANCOMYCIN PER PHARMACY MC PRN (12:35)
[2021-12-05] MEDS ORDERED: SIMETHICONE 80 MG TAB.CHEW PO PRN (12:40)
[2021-12-05] MEDS ORDERED: ALBUTEROL SULFATE/IPRATROPIU 3 ML SOL IH PRN (12:45)
[2021-12-05] MEDS ORDERED: cefTRIAXone 1,000 MG VIAL ONE (12:58)
--- NOTE | 2021-12-05 12:58 | NUR ---
Patient refused ABG. Physician and RN made aware. Patient SpO2 99% on 4lpm via nasal cannula with no distress noted at this time.
[2021-12-05] MEDS: NACL 0.9% 1,000 ML IV SCH (13:14)
[2021-12-05] MEDS: ALBUTEROL SULFATE/IPRATROPIU 3 ML SOL IH SCH ×2 (13:27→19:33)
[2021-12-05] MEDS ORDERED: VANCOMYCIN HCL 1.25 GM in DEXTROSE 5% 250 ML IV SCH (14:00)
[2021-12-05 14:40] VITALS: BP 98/66
--- NOTE | 2021-12-05 14:40 | NUR ---
PATIENT WHEELED BY RN FROM ER. PATIENT ALERT ABLE TO RESPONDS VERBALLY BUT NOTED WITH CONFUSION. JUANA GARCIA GAVE BED SIDE REPORT. PATIENT IV SITE ON RIGHT FORE ARM RIVERA 22. VANCO STILL RUNNING. MAKE PATIENT SITUATED IN ROOM. BODY CHECKED DONE NOTED WITH DISCOLORATION ON LEFT AND RIGHT AC AND WITH STAGE 2 1X1 CM.PATIENT ORIENTED TO ROOM, CALL LIGHT, TOILETING, AND TV.
--- NOTE | 2021-12-05 14:45 | NUR ---
Patient will be admitted to care of DR COVARRUBIAS. Admited to [facility]. Will go to room 111A. Belongings list completed. Report to CONCHIS ARIAS.
[2021-12-05 15:23] LABS: BILIRUBIN,URINE NEGATIVE (NEGATIVE); BLOOD, URINE 1+ (NEGATIVE); LEUKOCYTE ESTERASE ,URINE 1+ (NEGATIVE); NITRITE, URINE POSITIVE (NEGATIVE); UGLUCOSE NEGATIVE (NEGATIVE)
[2021-12-05 15:25] LABS: APPEARANCE,URINE HAZY (CLEAR); COLOR,URINE AMBER (YELLOW)
[2021-12-05 15:51] LABS: BARBITURATE, URINE NEGATIVE ng/ml (NEG <=200); BENZODIAZEPINE, URINE NEGATIVE ng/mL (NEG <=200); CANNABINOID, URINE NEGATIVE ng/mL (NEG <=50); COCAINE, URINE NEGATIVE ng/mL (NEG <=300); OPIATE, URINE NEGATIVE ng/mL (NEG <=2000); PHENCYCLIDINE SCREEN,URINE NEGATIVE ng/mL (NEG <=25)
--- NOTE | 2021-12-05 17:30 | NUR ---
PATIENT GIVEN JUICE AND WATER TOLERATED WELL. DENIES PAIN OR ANY DISCOMFORT. PATIENT REMOVING NASAL CANULA INSTRUCTED NOT TO REMOVE AND HE AGREED. ALL SAFETY MEASURE IN PLACE.
[2021-12-05] MEDS ORDERED: PIPERACILLIN/TAZOBACTAM 3.375 GM in DEXTROSE 5% 50 ML IV SCH (18:00)
--- NOTE | 2021-12-05 18:28 | NUR ---
NOTED POTASSIUM LEVEL OF 5.[address] COVARRUBIAS WITH ORDER TO GIVE KAYEXALATE 30 GMS.
[2021-12-05] MEDS: PIPERACILLIN/TAZOBACTAM 3.375 GM in DEXTROSE 5% 50 ML IV SCH (18:30)
--- NOTE | 2021-12-05 19:20 | NUR ---
GAVE REPORT TO [employer]ING HEADER NURSE FOR CONTINUITY OF CARE.
--- NOTE | 2021-12-05 19:25 | NUR ---
RECEIVED BEDSIDE REPORT FROM DAY RN. PT OBSERVED SITTING UP IN BED WATCHING PEOPLE PASS IN THE HALLWAY. PT IS AAOX1 SELF. RESPIRATIONS ARE EQUAL AND UNLABORED ON 2L NC. C/C ALOC DX UTI,ALOC. ON ABX. PT IS INCONTINENT OF B/B. IV ON R FA 22 INFUSING NS AT 60ML/H. HX DEMENTIA PT REFUSING TO KEEP TELE MONITOR ON PT STATES, "I SAID NO, STOP" EDUCATED PT ON REASON FOR TELE MONITOR PT STILL REFUSING. WILL ATTEMPT TO PUT ON AGAIN AT LATER TIME. PT WITH SACRAL WOUND PER REPORT. POC REVIEWED WITH PT. REINFORCEMENT NEEDED. SAFETY MEASURES ARE IN PLACE. WILL CONTINUE TO MONITOR.
[2021-12-05 20:00] VITALS: BP 117/67
[2021-12-05] MEDS ORDERED: SODIUM POLYSTYRENE 15 GM/60 ML UDBTL PO SCH (20:00)
[2021-12-05] MEDS: MONTELUKAST SODIUM 10 MG TAB PO SCH (20:23)
--- NOTE | 2021-12-05 20:24 | NUR ---
VSS. PT REFUSING TELE MONITOR, EDUCATED PT ON IMPORTANCE PT PULLED TELE BOX OFF AND YELLED, "NO,STOP" WILL ATTEMPT TO PUT BACK ON AT LATER TIME. KAYODE MEDICATION GIVEN PT TOOK WITH PROMPTING. MED EDUCATION GIVEN. ALL SAFETY MEASURES ARE IN PLACE. BED ALARM ON.
[2021-12-05 21:40] LABS: RBC,URINE 0-5 /HPF (0-5); WBC,URINE 80-100 /HPF (0-5)
--- NOTE | 2021-12-05 22:00 | NUR ---
PT PULLED OUT IV, IV CATH INTACT. PT WAS CLEAN AND REPOSITION EDUCATED PT FOR NEED FOR NEW IV PT REFUSED. PAGEMelva RAMOS REGARDING PT REFUSING IV AND TELE MONITOR. PT DX UTI ON ZOSYN AND VANCO WAITING CALL BACK.
--- NOTE | 2021-12-05 22:05 | NUR ---
NEW ORDER FOR LEVAQUIN 750MG DAILY PO. WILL INPUT NEW ORDER.
[2021-12-05 22:09] LABS: MAGNESIUM 1.1 mg/dL (1.8-2.4); PHOSPHORUS 2.5 mg/dL (2.5-4.9)
[2021-12-06] VITALS: BP 97/51
--- NOTE | 2021-12-06 00:15 | NUR ---
VITAL SIGNS ARE WITHIN NORMAL LIMITS. PATIENT WAS CLEANED AND REPOSITION FOR COMFORT. ALL SAFETY MEASURES ARE IN PLACE.
--- NOTE | 2021-12-06 02:07 | NUR ---
PATIENT ATTEMPTING TO GET OUT OF BED. REORIENTED PATIENT TO ROOM AND STAFF. PT BACK IN BED ALARM ON. PT REMAINS AAOX1 SELF. BED ALARM ON. WILL CONTINUE TO MONITOR.
[2021-12-06] MEDS: NACL 0.9% 1,000 ML IV SCH (03:37)
[2021-12-06 04:00] VITALS: BP 114/57
--- NOTE | 2021-12-06 04:10 | NUR ---
VITAL SIGNS ARE WITHIN NORMAL LIMITS. ALL SAFETY MEASURES ARE IN PLACE. WILL CONTINUE TO MONITOR.
[2021-12-06] MEDS: PIPERACILLIN/TAZOBACTAM 3.375 GM in DEXTROSE 5% 50 ML IV SCH ×3 (05:20)
[2021-12-06 06:49] LABS: BASOPHILS % (AUTO) 0.3 % (0.0-2.0); EOSINOPHILS # (AUTO) 0.1 K/uL (0-0.4); EOSINOPHILS % (AUTO) 0.7 % (0.0-4.0); HEMATOCRIT 33.5 % (36-52); HEMOGLOBIN 10.7 g/dL (12.0-18.0); LYMPHOCYTES # (AUTO) 0.5 K/uL (2.0-11.5); LYMPHOCYTES % (AUTO) 3.1 % (20.5-51.1); MEAN CORPUSCULAR HEMOGLOBIN 28 pg (27-31); MEAN CORPUSCULAR HGB CONC 32 g/dL (33-37); MEAN CORPUSCULAR VOLUME 86.5 fL (80-94); MONOCYTES # (AUTO) 0.7 K/uL (0.8-1.0); MONOCYTES % (AUTO) 4.1 % (1.7-9.3); NEUTROPHILS # (AUTO) 14.8 K/uL (1.8-7.7); NEUTROPHILS % (AUTO) 91.8 % (42.2-75.2); PLATELET COUNT (AUTO) 104 K/uL (140-450); RED BLOOD CELL COUNT(AUTO) 3.87 MIL/uL (4.20-6.10); RED CELL DISTRIBUTION WIDTH 14.4 % (11.6-13.7); WHITE BLOOD COUNT (AUTO) 16.1 K/uL (4.8-10.8)
[2021-12-06 06:51] LABS: CHLORIDE 95 mmol/L (98-107); CREATININE 0.7 mg/dL (0.6-1.3); GLUCOSE 106 mg/dL (74-106); POTASSIUM 3.7 mmol/L (3.5-5.1); SODIUM SERUM 141 mmol/L (136-145); UREA NITROGEN, BLOOD 21 mg/dL (7-18)
[2021-12-06] MEDS: ALBUTEROL SULFATE/IPRATROPIU 3 ML SOL IH SCH ×3 (06:58→19:00)
--- NOTE | 2021-12-06 07:15 | NUR ---
PT JUST WOKE UP. FOUND PT ON ROOM AIR, SAT WAS 97%. PT REFUSED DUONEB THIS MORNING, BUT WILL TRY AGAIN AFTER BREAKFAST.
[2021-12-06 07:16] LABS: ANION GAP -1.7 (8-16); CARBON DIOXIDE 51.4 mmol/L (21-32)
--- NOTE | 2021-12-06 07:16 | NUR ---
GAVE BEDSIDE REPORT TO DAY RN. PT ENDORSED IN STABLE CONDITION.
--- NOTE | 2021-12-06 07:17 | NUR ---
RECEIVED PT FROM ANALOG DEVICE DESIGNER NURSE FOR CONTINUITY OF CARE. PT IS AWAKE IN BED. RESPIRATIONS EVEN AND UNLABORED IN ROOM AIR. PT KEPT ON REMOVING BEAUTY ADVISOR. NO PERIPHERAL IV LINE IN PLACE. PT KEPT ON REMOVING IT AND REFUSED TO PUT A NEW ONE. INFORMED DR COVARRUBIAS REGARDING LASIX IVP, VANCO AND ZOSYN. ORDERED TO CHANGE LASIX TO ORAL AND DC VANCO AND ZOSYN. CALL LIGHT WITHIN REACH. BED ALARM IS ON. BED ON THE LOWEST POSITION. SAFETY PRECAUTIONS IN PLACE. WILL CONTINUE TO MONITOR.
[2021-12-06 08:00] VITALS: BP 137/59
--- NOTE | 2021-12-06 08:38 | NUR ---
PATIENT HAS BEEN SCREENED AND CATEGORIZED HIGH NUTRITION RISK. PATIENT WILL BE SEEN WITHIN 1-2 DAYS OF ADMISSION. CONSULT RECEIVED FOR WOUNDS AND PRESSURE INJURY DANAY GHOSH RD
[2021-12-06] MEDS ORDERED: FUROSEMIDE 20 MG/2 ML VIAL IVP SCH (09:00)
[2021-12-06] MEDS ORDERED: FLUTICASONE NASAL 50 MCG/ACTUATION 16 GM BTL NS SCH (09:00)
[2021-12-06] MEDS: PANTOPRAZOLE 40 MG TABEC PO SCH (10:02)
[2021-12-06] MEDS: FUROSEMIDE 20 MG TAB PO SCH ×2 (10:02→21:45)
[2021-12-06] MEDS: ASPIRIN 81 MG TAB.CHEW PO SCH (10:03)
[2021-12-06] MEDS: levoFLOXacin 750 MG TAB PO SCH (10:03)
[2021-12-06] MEDS: SENNA 8.6 MG TAB PO SCH (10:03)
[2021-12-06] MEDS: VIT-B COMP/VIT-C/FOLIC ACID 1 TAB PO SCH (10:03)
[2021-12-06] MEDS: DILTIAZEM 120 MG CAPER PO SCH (10:04)
[2021-12-06] MEDS: DIGOXIN 0.125 MG TAB PO SCH (10:05)
[2021-12-06] MEDS ORDERED: MAGNESIUM OXIDE 400 MG TAB PO SCH (10:06)
[2021-12-06] MEDS: CYANOCOBALAMIN 100 MCG TAB PO SCH (10:09)
--- NOTE | 2021-12-06 10:25 | NUR ---
GIVEN MEDICATION ORDERED. DR. COVARRUBIAS AT BED SIDE. INFORM DR. COVARRUBIAS THAT PATIENT UNABLE TO KEEP TELE LEAD AND HE SAID TO JUST DISCONTINUE IT. AND D/C IV FLUID.
--- NOTE | 2021-12-06 10:30 | NUR ---
SENT MESSAGE TO DR COVARRUBIAS FOR CLARIFICATION OF FLONASE ORDER. AWAITING FOR RESPONSE.
[2021-12-06] MEDS: FLUTICASONE NASAL 50 MCG/ACTUATION 16 GM BTL NS SCH ×3 (10:35→21:42)
--- NOTE | 2021-12-06 10:42 | NUR ---
WOUND CARE EVALUATION NOTE: SKIN ASSESSMENT DONE WITH THIS PT ADMITTED WITH INITIAL DX ALC. PAST MEDICAL HX INCLUDES HTN, COPD ON 3L NC AT BASELINE, ASTHMA, ATRIAL FIBRILLATION, CHF, OSTEOPOROSIS, DECUBITUS ULCER ALL ABOVE INFORMATION OBTAINED FROM ADMISSION H&P. PT. ADMITTED A PRESSURE INJURY TO RIGHT BUTTOCK. PT IS AWAKE, ABLE TO ANSWER YES, NO BUT UNABLE TO FOLLOW DIRECTIONS/DEMENTIA, SKIN IS WARM AND DRY, POOR SKIN TURGOR, S/S OF DEHYDRATION. SKIN THIN AND BONY. ALL EXTREMITIES ARE STIFFNESS. BLE NO HAIR GROWTH, NO EDEMA. DORSAL PEDAL PULSES PRESENT AND NORMAL. CAPILLARY REFILLED <2 SEC. X 10 TOES. INCONTINENT OF BOWEL AND BLADDER. PLAN OF CARE DISCUSSED WITH PRIMARY RN. COMORBIDITIES RELATED TO DELAY WOUND HEALING, FURTHER SKIN BREAKS BOWEL AND URINARY INCONTINENCE, INFECTION, HYPOXEMIC DECREASE TISSUE PERFUSION, DECREASE MOBILITY AND FUNCTIONAL ABILITIES, AND HOB ELEVATED THE MAJORITY OF TIMES DUE TO MEDICAL REASONS. INTEGUMENTARY: -LIPS AND ORAL MEMBRANE DRY AND CLEAN. SKIN PALE. -UPPER ARMS MULTIPLE ECCHYMOSIS AND DRY -INCONTINENT ASSOCIATE DERMATITIS (IAD) TO: B/L GROINS, SCROTAL, SKIN REDNESS -PRESSURE ULCER INJURY STAGE 1, SACROCOCCYX 2X1CM, SANTA-WOUND SKIN MOIST SURROUNDING REDNESS INDICATED FURTHER DAMAGE -PRESSURE INJURY STAGE 2 TO RIGHT LOWER BUTTOCK CLOSE TO SACRAL 1X1X0.1CM, WOUND BED IS 100% PALE PINK TISSUE, DRY, NO ODOR, SANTA WOUND SKIN SCABS TISSUE, IRREGULAR SHAPE RECOMMENDATIONS: -APPLY THIN LAYER OF Z GUARD TO R/L GROINS, SCROTAL BID AND PRN IF SOILING -CLEANSE RIGHT BUTTOCKS WITH WOUND CLEANSING SOLUTION AND APPLY Z-GUARD COVER WITH FOAM DRESSING QD AND PRN IF SOILING -APPLY FORM DRESSING TO ELBOW, HIPS, SACROCOCCYX Q7 DAYS AND PRN IF SOILING PREVENTION -POSITIONING: TURN AND REPOSITION PATIENT Q 2H OR SOONER USE PILLOWS TO KEEP BONY PROMINENCES FROM DIRECT CONTACT WITH SURFACES USE REPOSITIONING WEDGES TO PROVIDE 30-DEGREE ANGLE FOR SIDE LYING POSITIONS OFFLOADING OR FOAM DRESSING TO ALL TUBING TO PREVENT MEDICAL DEVICES RELATED PRESSURE INJURY -RE-EVALUATING AND MANAGING INCONTINENCE MONITOR SKIN CONDITION DURING POSITION CHANGE DO NOT MASSAGE REDNESS, BONY PROMINENCES, DO NOT USE DONUT-TYPE DEVICES FREQUENT SANTA-CARE AND PROVIDE BARRIER CREAMS PRN IF SOILING MOISTURE CONTROL BY OFFER BED OLVERA/URINAL /ABSORBENT PAD TO WICK AND HOLD MOISTURE. MAY OBTAIN ORDER FOR FLEX SEAL, RECTAL BAG OR LOUISE CATHETER PER PHYSICIAN ORDER UNLESS OTHERWISE CONTRAINDICATED KEEP SKIN DRY AND PROTECT FROM FRICTION -MANAGE FRICTION/SHEAR/MOBILITY KEEP HOB AT THE LOWEST LEVEL OF ELEVATION NO MORE THAN 30 DEGREES UNLESS OTHERWISE CONTRAINDICATED USE LIFT SHEET OR TRANSFER DEVICE TO MOVE PATIENT AND PREVENT LATERAL SHEER. CONSIDER TRAPEZE IF APPROPRIATE PROTECT HEELS, ELBOWS BONY PROVENANCES WITH SKIN BERRIES OR FOAM DRESSING IF EXPOSED TO FRICTION OFFLOAD BILATERAL HEELS BY PLACING PILLOWS UNDER CALVES AT ALL TIMES, UNLESS OTHERWISE CONTRAINDICATED -PRESSURE REDISTRIBUTION SURFACE THERAPY ELIUD ISOFLEX MATTRESS -NUTRITION: PLEASE FOLLOW RD RECOMMENDATIONS AND OFFER NUTRITION SUPPLEMENTS IF ORDERED
--- NOTE | 2021-12-06 11:22 | NUR ---
DC PLANNING: THE PATIENT PRESENTED TO ED FROM [facility] WITH C/O ALOC AND LETHARGY. H/O HTN, COPD, ASTHMA, ALZHEIMERS, METABOLIC ENCEPHALOPATHY, AFIB, CHF, OSTEOPOROSIS AND STAGE 1 PRESSURE ULCER. WBC'S 13.9, EKG RESULTS OF AFIB, CXR SHOWS OPACITY WITH PARTIALLY LOCULATED PLEURAL EFFUSION. CT HEAD NEGATIVE FOR ACUTE FINDINGS, UA + FOR LEUKOCYTES AND NITRITES. STARTED ON LASIX PO LEVAQUIN IV, DUONEBS, ON 2L O2 NC. WOUND CARE EVALUATION FOR HIS DECUBITUS ORDERED. BARTOLO ATTEMPTED TO SPEAK WITH THE PATIENT WHO IS UNABLE TO HOLD A CONVERSATION AT THIS TIME. BARTOLO SPOKE WITH GERTRUDIS AT [facility], THE PATIENT IS USUALLY ALERT AND APPROPRIATE WITH HIS RESPONSES AND MAKES HIS OWN DECISIONS. HE IS PRIMARILY WC BOUND AND TOTAL CARE WITH DAILY ACTIVITIES BUT IS ABLE TO FEED HIMSELF. HE IS ON O2 AT [facility] AND HAS BEEN PENITENTIARY LEVEL OF CARE SINCE September. HIS BROTHER CALLS OCCASIONALLY BUT IS NOT INVOLVED WITH HIS CARE AND THERE IS NO OTHER FAMILY. THE DC PLAN IS FOR THE PATIENT TO RETURN TO [facility] WHEN CLINICALLY STABLE, BARTOLO WILL FOLLOW. Addendum: 12/09/21 at 1255 by Angelique Roche CM DC PLANNING: DC ORDER RECEIVED FOR PATIENT TO RETURN TO [facility]. PATIENT ASSIGNED TO ROOM 2C, DR GARCIA TO FOLLOW. TRANSPORT ARRANGED WITH [facility]ROUGH [employer], TENTATIVELY SCHEDULED FOR 1600, [employer] WILL CALL BARTOLO TO CONFIRM TIME AND TRANSPORT AGENCY. BARTOLO SPOKE WITH THE PATIENT AT BEDSIDE TO LET HIM KNOW THAT HE WILL RETURN TO [facility], PATIENT WAS NON-VERBAL BUT NODDED HIS HEAD WHEN PLAN TO RETURN TO [facility] WAS ENDORSED. BARTOLO ALSO LEFT VM FOR HIS BROTHER LESLIE TO LET HIM KNOW THAT PATIENT WILL DC. ABOVE ENDORSED TO THE PATIENTS NURSE TIKI, BARTOLO WILL FOLLOW. Addendum: 12/09/21 at 1453 by Angelique Roche CM DC PLANNING: BARTOLO RECEIVED A CALL FROM [employer] ([phone]) WHO STATES THEY WILL MOLD REPAIRER THE PATIENT AT 1600 TO TRANSPORT TO [facility]. BARTOLO WILL FOLLOW. Addendum: 12/10/21 at 0833 by Angelique Roche CM DC PLANNING: LATE ENTRY FOR 12/09/21- BARTOLO ATTEMPTED TO PRESENT THE IMPORTANT MESSAGE FROM MEDICARE TO PATIENT, PATIENT CONFUSED AND UNABLE TO SIGN THE DOCUMENT. BARTOLO CALLED HIS BROTHER LESLIE AND LEFT VM BUT DID NOT RECEIVE A CALL BACK. IM PLACED IN PATIENTS CHART. BARTOLO WILL FOLLOW.
--- NOTE | 2021-12-06 11:30 | NUR ---
PT REFUSED TAKING FLONASE. EXPLAIN TO PT THE IMPORTANCE AND RISKS OF NOT TAKING IT. PT VERBALIZED UNDERSTANDING.
--- NOTE | 2021-12-06 11:50 | NUR ---
12/06/21 RD INITIAL ASSESSMENT COMPLETED PLEASE REFER TO NUTRITION ASSESSMENT UNDER CARE ACTIVITY FOR ESTIMATED NUTRITIONAL NEEDS. 1. CONTINUE CARDIAC DIET TOLERATED -RECOMMEND DOWNGRADING TEXTURE TO MECHANICAL SOFT 2. RECOMMEND ENSURE BID AND NIKITA BID PER RD PROTOCOL 3. RD TO FOLLOW-UP 2-3 DAYS, HIGH RISK DANAY GHOSH, SHAUN
[2021-12-06 12:00] VITALS: BP 93/55
--- NOTE | 2021-12-06 12:36 | NUR ---
PT OUT OF UNIT. PICKED-UP BY RADIOLOGY STAFF THROUGH [facility]. PT FOR CT-CHEST. PT IS STABLE.
[2021-12-06] MEDS: FOAM DRESSING TP SCH (13:00)
[2021-12-06] MEDS: Z-GUARD PASTE TP SCH (13:00)
--- NOTE | 2021-12-06 13:00 | NUR ---
PT REFUSED TREATMENT AT THIS TIME.
--- NOTE | 2021-12-06 14:45 | NUR ---
PT IN BED, AWAKE AND RESTING. NO SIGNS OF DISTRESS NOTED. RESPIRATIONS EVEN AND UNLABORED. GAVE PT APPLE JUICE FOR REFRESHMENT. LEFT PT SITTING IN BED. CALL LIGHT WITHIN REACH. SAFETY MEASURES IN PLACE.
--- NOTE | 2021-12-06 15:05 | NUR ---
DC PLANNING PATIENT IS ON A 76 YEAR OLD MALE ADMITTED ON 12/05/2021 ON THE [facility]/ED DUE TO ALTERED LEVEL OF CONSCIOUSNESS. PATIENT WAS BROUGHT IN BY AMBULANCE FROM [facility]. HAS HX. OF HTN, COPD, ASTHMA, ALZHEIMER'S DEMENTIA, METABOLIC ENCEPHALOPHATY, CHF. SW ATTEMPTED TO MET WITH PATIENT AT BEDSIDE TO DISCUSS AND GATHER PATIENT'S INFORMATION. PATIENT WAS AWAKE HOWEVER WAS NOT ABLE TO RESPOND TO ALL QUESTIONS AND PROVIDE MUST OF THE INFORMATION ASKED BY SW. SW LEFT THE ROOM AND WILL BE CONTACTING THE FAMILY IN CHART AND [facility] FACILITY FOR INFORMATION. ERNESTO ATTEMPTED TO TALK TO LESLIE MCKEON'S BROTHER AT PATIENT'S BROTHER DID NOT RESPONDED AND THE VOICE MAIL WAS FULL THEREFORE; ERNESTO WAS NOT ABLE TO LEAVE A VOICE MAIL MSG. SW CALL [facility] AND SPOKE TO STAFF LIBBY WHO PROVIDED PATIENT'S COLLATERAL INFORMATION. PER LIBBY PATIENT USUALLY IS ABLE TO PROVIDE HIS OWN INFORMATION AND IS APPROPRIATE WITH HIS RESPONSES. PATIENT IS HIS OWN DECISION MAKER AND EVEN THOUGHT HE HAS FAMILY (BROTHER) LISTED EMERGENCY HE IS NOT INVOLVED IN HIS LIFE OF VISITS PATIENT. PATIENT IS WHEELCHAIR BOUND AND IN TOTAL CARE WITH HIS DAILY ACTIVITIES BUT NORMAL HE IS ABLE TO FEED HIMSELF. HE IS ON O2 AT [facility] AND HAS BEEN IN [facility] LEVEL OF CARE SINCE September. PATIENT IS ABLE TO RETURNED TO [facility] WHEN HE IS DC FROM [facility]. ERNESTO WILL FOLLOW UP NEEDED.
[2021-12-06 16:00] VITALS: BP 103/59
--- NOTE | 2021-12-06 17:31 | NUR ---
DID PT ROUNDS. PT IN BED, AWAKE, RESTING. BREATHING EVEN AND UNLABORED. NO SIGNS OF DISTRESS NOTED. DENIES PAIN. CALL LIGHT WITHIN REACH. SAFETY MEASURES IN PLACE. WILL CONTINUE TO MONITOR.
--- NOTE | 2021-12-06 19:30 | NUR ---
ENDORSED PT TO PRINTING MECHANIST NURSE FOR CONTINUITY OF CARE. ALL NEEDS MET THROUGHOUT SHIFT. PT IS STABLE.
--- NOTE | 2021-12-06 19:31 | NUR ---
RECEIVED REPORT FROM DAY SHIFT NURSE STONE ARIAS FOR CONTINUITY OF CARE. PT IS STABLE IN BED. A&OX1 SELF. DENIES PAIN. ON O2 2L/NC. NAD. RR EVEN AND UNLABORED. GI INTACT. PT'S SKIN NOT INTACT. R BUTTOCK DRESSING D&I. PT HAS NO IV SITE DR IS AWARE. PT IS BEDBOUND AND INCONTINENT OF BOWEL AND BLADDER.POC UPDATED. ALL SAFETY MEASURES IN PLACE. BED IN LOW AND LOCKED POSITION. CALL LIGHT WITHIN REACH. ENCOURAGED TO CALL FOR ANY NEEDS. WILL CONTINUE TO MONITOR.
[2021-12-06 20:00] VITALS: BP 104/77
--- NOTE | 2021-12-06 21:30 | NUR ---
HS MEDS GIVEN WITH CRANBERRY JUICE. DENIES PAIN. O2 2L/NC ON. Z GUARD APPLIED TO BUTTOCK SKIN. NAD. ALL SAFETY MEASURES IN PLACE. CALL LIGHT WITHIN REACH. WILL CONTINUE TO MONITOR.
[2021-12-06] MEDS: MONTELUKAST SODIUM 10 MG TAB PO SCH (21:45)
[2021-12-07] MEDS: Z-GUARD PASTE TP SCH ×2 (01:15→13:24)
--- NOTE | 2021-12-07 02:30 | NUR ---
FREQ ROUNDS. CHECKED PT STABLE AND ASLEEP O2 ON AT 2L/NC. RR EVEN AND UNLABORED WITH EQUAL CHEST RISE. ALL SAFETY MEASURES IN PLACE.BED IN LOW AND LOCKED POSITION. CALL LIGHT WITHIN REACH. WILL CONTINUE TO MONITOR.
[2021-12-07 04:00] VITALS: BP 116/57
--- NOTE | 2021-12-07 06:00 | NUR ---
FREQ ROUNDS.CHECKED PT IS STABLE AND DOZING IN BED. RR EVEN AND UNLABORED WITH EQUAL CHEST RISE. ALL SAFETY MEASURES IN PLACE. BED IN LOW AND LOCKED POSITION. CALL LIGHT WITHIN REACH. WILL CONTINUE TO MONITOR.
[2021-12-07 06:20] LABS: BASOPHILS % (AUTO) 0.3 % (0.0-2.0); EOSINOPHILS % (AUTO) 0.2 % (0.0-4.0); HEMATOCRIT 37.1 % (36-52); HEMOGLOBIN 11.8 g/dL (12.0-18.0); LYMPHOCYTES # (AUTO) 1.2 K/uL (2.0-11.5); LYMPHOCYTES % (AUTO) 13.8 % (20.5-51.1); MEAN CORPUSCULAR HEMOGLOBIN 28 pg (27-31); MEAN CORPUSCULAR HGB CONC 32 g/dL (33-37); MEAN CORPUSCULAR VOLUME 87.4 fL (80-94); MONOCYTES # (AUTO) 0.7 K/uL (0.8-1.0); NEUTROPHILS % (AUTO) 77.7 % (42.2-75.2); PLATELET COUNT (AUTO) 91 K/uL (140-450); RED BLOOD CELL COUNT(AUTO) 4.24 MIL/uL (4.20-6.10); RED CELL DISTRIBUTION WIDTH 14.8 % (11.6-13.7)
[2021-12-07 06:36] LABS: CHLORIDE 91 mmol/L (98-107); CREATININE 0.7 mg/dL (0.6-1.3); GLUCOSE 108 mg/dL (74-106); POTASSIUM 3.7 mmol/L (3.5-5.1); SODIUM SERUM 134 mmol/L (136-145); UREA NITROGEN, BLOOD 22 mg/dL (7-18)
--- NOTE | 2021-12-07 06:45 | NUR ---
LAB CALLED WITH A CRITICAL CO2 VALUE OF 58.1. TEXTED DR COVARRUBIAS INFORMING HIM OF THIS AND THAT THE CO2 HAD BEEN TRENDING UP. OF 739 NO RESPONSE. ENDORSED REPORT TO AM JUANA RENAE FOR CONTINUITY OF CARE. PT STABLE.
[2021-12-07 06:51] LABS: ANION GAP -11.4 (8-16)
[2021-12-07 06:53] LABS: CARBON DIOXIDE 58.1 mmol/L (21-32)
[2021-12-07] MEDS: ALBUTEROL SULFATE/IPRATROPIU 3 ML SOL IH SCH ×3 (07:00→19:33)
--- NOTE | 2021-12-07 07:00 | NUR ---
PT STABLE AND RESTING. EQUAL CHEST RISE AND IN NO DISTRESS. FOUND PT WAS ON 3L NASAL CANNULA.
--- NOTE | 2021-12-07 07:30 | NUR ---
RECEIVED PT FROM PRACTICE OR STUDENT TEACHER NURSE FOR CONTINUITY OF CARE. PT IS AWAKE, SITTING ON HIS BED. RESPIRATIONS EVEN AND UNLABORED ON 2L NASAL CANULA SATTING AT 95%. NO SIGNS OF DISTRESS NOTED. DENIES PAIN. CALL LIGHT WITHIN REACH. SAFETY MEASURES IN PLACE. WILL CONTINUE TO MONITOR.
[2021-12-07 08:00] VITALS: BP 115/61
--- NOTE | 2021-12-07 08:25 | NUR ---
INFORMED DR COVARRUBIAS ABOUT PT'S PLATELET LEVEL OF 91. ADVISED TO HOLD ASPIRIN AND HEPARIN.
--- NOTE | 2021-12-07 08:27 | NUR ---
GOT THE RESPONSE FROM ASSOCIATE CONSULTING ENGINEER NURSE REQUEST FOR ADVICE REGARDING PT'S CO2 THAT IS TRENDING UP. PT ADVISED TO PUT PT ON BIPAP. COORDINATED WITH RT. RT SAID THAT CO2 OF 50'S FOR PT WITH COPD IS NORMAL. PT NEEDS TO BE ALERT AND ORIENTED AND ABLE TO REMOVE BIPAP IF HE FELT VOMITING BECAUSE IF NOT PT WILL BE AT RISK OF ASPIRATIONS. INFORMED DR COVARRUBIAS, ADVISED TO JUST MONITOR THE PT. HS WAS ALSO ADVISED.
[2021-12-07] MEDS: ASPIRIN 81 MG TAB.CHEW PO SCH (09:00)
--- NOTE | 2021-12-07 09:05 | NUR ---
G DONE. PAGED DR. COVARRUBIAS WITH THE RESULTS. NO NEW ORDERS.
[2021-12-07] MEDS: levoFLOXacin 750 MG TAB PO SCH (10:46)
[2021-12-07] MEDS: VIT-B COMP/VIT-C/FOLIC ACID 1 TAB PO SCH (10:47)
[2021-12-07] MEDS: DIGOXIN 0.125 MG TAB PO SCH (10:47)
[2021-12-07] MEDS: FUROSEMIDE 20 MG TAB PO SCH ×2 (10:47→21:06)
[2021-12-07] MEDS: DILTIAZEM 120 MG CAPER PO SCH (10:47)
[2021-12-07] MEDS: SENNA 8.6 MG TAB PO SCH (10:48)
[2021-12-07] MEDS: PANTOPRAZOLE 40 MG TABEC PO SCH (10:48)
[2021-12-07] MEDS: CYANOCOBALAMIN 100 MCG TAB PO SCH (10:49)
[2021-12-07] MEDS: FLUTICASONE NASAL 50 MCG/ACTUATION 16 GM BTL NS SCH (11:03)
--- NOTE | 2021-12-07 11:30 | NUR ---
DR COVARRUBIAS AND RT AT BEDSIDE.
--- NOTE | 2021-12-07 13:24 | NUR ---
DID PT ROUNDS. PT SITTING IN BED. CALM AND AWAKE. NO SIGNS OF DISTRESS NOTED. BREATHING EVEN AND UNLABORED ON 2L NC. CALL LIGHT WITHIN REACH SAFETY MEASURES IN PLACE. WILL CONTINUE TO MONITOR.
--- NOTE | 2021-12-07 15:02 | NUR ---
NURSE AND PRINT DEVELOPER AUTOMATIC CLEAN PT. APPLIED Z-GUARD TO BUTTOCKS. PT TOLERATED WELL.
--- NOTE | 2021-12-07 18:14 | NUR ---
PT SITTING IN BED. OFFERED TO EAT HIS DINNER BUT REFUSED. FINISHED DRINKING WHOLE BOTTLE OF ENSURE. PT KEPT ON SAYING THAT HE WANTS TO GET UP AND LEAVE BUT STOPS WHEN EXPLAINED THAT HE NEEDS TO STAY TO FEEL BETTER. PT ON NC 3L. NO DISTRESS NOTED.
--- NOTE | 2021-12-07 19:05 | NUR ---
ENDORSED PT TO TRAFFIC COURT MAGISTRATE NURSE FOR CONTINUITY OF CARE. ALL NEEDS MET THROUGHOUT SHIFT. PT IS STABLE.
--- NOTE | 2021-12-07 19:15 | NUR ---
RECEIVED PT FROM AM NURSE FOR CONTINUITY OF CARE.PT IS STABLE
[2021-12-07] MEDS: MONTELUKAST SODIUM 10 MG TAB PO SCH (21:06)
--- NOTE | 2021-12-07 21:30 | NUR ---
ALL MEDICATIONS GIVEN ,TOLERATED WELL.BREATHING EVEN AND AND UNLABORED,NO DISTRESS NOTED
--- NOTE | 2021-12-08 01:00 | NUR ---
PATIENT ASLEEP BREATHING EVEN AND UNLABORED , NO DISTRESS NOTED
[2021-12-08] MEDS: FLUTICASONE NASAL 50 MCG/ACTUATION 16 GM BTL NS SCH ×2 (02:56→09:00)
[2021-12-08] MEDS: Z-GUARD PASTE TP SCH ×2 (02:58→13:12)
--- NOTE | 2021-12-08 03:00 | NUR ---
SLEEPING COMFORTABLY IN BED.NO SOB OR COMPLAIN OF PAIN
--- NOTE | 2021-12-08 06:00 | NUR ---
PATIENT ASLEEP ,BREATHING EVEN AND UNLABORED,NO DISTRESS NOTED
[2021-12-08] MEDS: ALBUTEROL SULFATE/IPRATROPIU 3 ML SOL IH SCH ×3 (07:02→19:20)
[2021-12-08 07:09] LABS: CHLORIDE 93 mmol/L (98-107); CREATININE 0.7 mg/dL (0.6-1.3); GLUCOSE 119 mg/dL (74-106); POTASSIUM 3.6 mmol/L (3.5-5.1); SODIUM SERUM 142 mmol/L (136-145); UREA NITROGEN, BLOOD 24 mg/dL (7-18)
--- NOTE | 2021-12-08 07:15 | NUR ---
RECEIVED REPORT FROM RIVET BUCKER NURSE. PT IS AWAKE, AOX1. ON 3L O2 NC. PT BREATHING UNLABORED. DISCUSSED PLAN OF CARE. WILL CONTINUE TO MONITOR.
[2021-12-08 07:19] LABS: BASOPHILS % (AUTO) 0.2 % (0.0-2.0); EOSINOPHILS # (AUTO) 0.1 K/uL (0-0.4); EOSINOPHILS % (AUTO) 0.7 % (0.0-4.0); HEMATOCRIT 33.4 % (36-52); HEMOGLOBIN 10.7 g/dL (12.0-18.0); LYMPHOCYTES # (AUTO) 0.7 K/uL (2.0-11.5); MEAN CORPUSCULAR HEMOGLOBIN 28 pg (27-31); MEAN CORPUSCULAR HGB CONC 32 g/dL (33-37); MEAN CORPUSCULAR VOLUME 87.5 fL (80-94); MONOCYTES # (AUTO) 0.7 K/uL (0.8-1.0); MONOCYTES % (AUTO) 6.7 % (1.7-9.3); NEUTROPHILS # (AUTO) 8.6 K/uL (1.8-7.7); PLATELET COUNT (AUTO) 90 K/uL (140-450); RED BLOOD CELL COUNT(AUTO) 3.81 MIL/uL (4.20-6.10); RED CELL DISTRIBUTION WIDTH 14.5 % (11.6-13.7); WHITE BLOOD COUNT (AUTO) 10.1 K/uL (4.8-10.8)
[2021-12-08 07:36] LABS: ANION GAP < 1.0 (8-16); CARBON DIOXIDE 60.7 mmol/L (21-32)
--- NOTE | 2021-12-08 07:36 | NUR ---
ADIS FROM [facility] CALLED, CO2 IS AT 60.7. INFORMED VAZQUEZ FOREMAN. REPLIED AND INSTRUCTED TO GIVE BREATHING TX. RT GAVE BREATHING TX.
[2021-12-08 07:45] LABS: LYMPHOCYTES % (AUTO) 7.4 % (20.5-51.1)
[2021-12-08] MEDS: CYANOCOBALAMIN 100 MCG TAB PO SCH (09:00)
[2021-12-08] MEDS: ASPIRIN 81 MG TAB.CHEW PO SCH (09:00)
--- NOTE | 2021-12-08 09:30 | NUR ---
HELD DILTIAZEM & FUROSEMIDE PER DR. YUN. BP IS AT 90/47.
--- NOTE | 2021-12-08 09:30 | NUR ---
HELD ASPIRIN AND HEPARIN PER DR'S ORDER- PLATELET IS AT 90.
[2021-12-08] MEDS: FUROSEMIDE 20 MG TAB PO SCH ×2 (10:04→10:10)
[2021-12-08] MEDS: DIGOXIN 0.125 MG TAB PO SCH (10:05)
[2021-12-08] MEDS: VIT-B COMP/VIT-C/FOLIC ACID 1 TAB PO SCH (10:05)
[2021-12-08] MEDS: SENNA 8.6 MG TAB PO SCH (10:05)
[2021-12-08] MEDS: DILTIAZEM 120 MG CAPER PO SCH ×2 (10:05→10:10)
[2021-12-08] MEDS: PANTOPRAZOLE 40 MG TABEC PO SCH (10:06)
[2021-12-08] MEDS: levoFLOXacin 750 MG TAB PO SCH (10:06)
--- NOTE | 2021-12-08 11:28 | NUR ---
CHECKED PT STATUS, PT WAS HARD TO WAKE UP. ELEVATED HEAD, AND WOKE PT UP, PT EYES OPENED. WILL CONTINUE TO MONITOR.
--- NOTE | 2021-12-08 12:00 | NUR ---
PT LYING ON HIS BED, AWAKE AND RESPONDS TO HIS NAME. WILL CONTINUE TO MONITOR.
--- NOTE | 2021-12-08 13:09 | NUR ---
RECEIVED CALL FROM [facility], PT URINE CULTURE CAME BACK POSITIVE WITH MRSA. Addendum: 12/08/21 at 1411 by Sarah Joya RN DISREGARD PREVIOUS NOTE.
--- NOTE | 2021-12-08 14:35 | NUR ---
NEENA-DIETITIAN CALLED AND ASK IF PT DIET CAN BE DOWNGRADED TO FULL LIQUID CARDIAC DIET. WILL RELAY MESSAGE TO VAZQUEZ FOREMAN.
--- NOTE | 2021-12-08 15:38 | NUR ---
RELAYED MESSAGE TO DR. GARCIA, ABOUT PT DIET DOWNGRADING TO FULL LIQUID CARDIAC DIET, ORDERED TO CHANGE DIET TO FULL LIQUID CARDIAC DIET.
--- NOTE | 2021-12-08 16:00 | NUR ---
PT IS AWAKE, RESPONDED TO HIS NAME. PT IS NOT IN DISTRESS, AND WILL CONTINUE TO MONITOR.
--- NOTE | 2021-12-08 16:04 | NUR ---
CHANGED PT DIET TO FULL LIQUID CARDIAC DIET, PER MD'S ORDER.
--- NOTE | 2021-12-08 16:12 | NUR ---
12/08/21 RD FOLLOW UP COMPLETED. PLEASE REFER TO NUTRITION ASSESSMENT UNDER CARE ACTIVITY FOR ESTIMATED NUTRITIONAL NEEDS. 1. CONTINUE CARDIAC DIET TOLERATED -RECOMMEND DOWNGRADING TEXTURE TO FULL LIQUID 2. RECOMMEND ENSURE TID AND NIKITA BID PER RD PROTOCOL 3. RD TO FOLLOW-UP 2-3 DAYS, HIGH RISK PEBBLES AVILA RD
--- NOTE | 2021-12-08 19:15 | NUR ---
GAVE REPORT TO WARP DOFFER NURSE. PT IS STABLE, DISCUSSED PLAN OF CARE.
--- NOTE | 2021-12-08 19:25 | NUR ---
RECEIVED PT FROM AM NURSE FOR CONTINUITY OF CARE. PT IS STABLE
[2021-12-08] MEDS: MONTELUKAST SODIUM 10 MG TAB PO SCH (20:43)
--- NOTE | 2021-12-08 21:30 | NUR ---
ALL MEDICATIONS GIVEN TOLERATED WELL. ALL SAFETY MEASURES IN PLACE,NO SOB NOTED
[2021-12-09] MEDS: FLUTICASONE NASAL 50 MCG/ACTUATION 16 GM BTL NS SCH ×2 (00:37→08:30)
--- NOTE | 2021-12-09 01:00 | NUR ---
PT ASLEEP, BREATHING EVEN AND UNLABORED,ALL SAFETY MEASURES IN PLACE,NO DISTRESS NOTED
[2021-12-09] MEDS: Z-GUARD PASTE TP SCH ×2 (01:47→12:07)
--- NOTE | 2021-12-09 03:30 | NUR ---
PATIENT ASLEEP ,RESPIRATION EVEN AND UNLABORED.ON 3L NC SATURATING AT 97-99% . ALL SAFETY MEASURES IN PLACE
--- NOTE | 2021-12-09 06:00 | NUR ---
PATIENT AWAKE,RESPIRATION EVEN AND UNLABORED ,NO DISTRESS NOTED
[2021-12-09 06:58] LABS: BASOPHILS % (AUTO) 0.2 % (0.0-2.0); EOSINOPHILS % (AUTO) 0.4 % (0.0-4.0); HEMATOCRIT 34.6 % (36-52); LYMPHOCYTES # (AUTO) 0.4 K/uL (2.0-11.5); LYMPHOCYTES % (AUTO) 4.3 % (20.5-51.1); MEAN CORPUSCULAR HEMOGLOBIN 28 pg (27-31); MEAN CORPUSCULAR HGB CONC 32 g/dL (33-37); MEAN CORPUSCULAR VOLUME 88.3 fL (80-94); MONOCYTES # (AUTO) 0.7 K/uL (0.8-1.0); MONOCYTES % (AUTO) 6.5 % (1.7-9.3); NEUTROPHILS # (AUTO) 9.1 K/uL (1.8-7.7); NEUTROPHILS % (AUTO) 88.6 % (42.2-75.2); PLATELET COUNT (AUTO) 82 K/uL (140-450); RED BLOOD CELL COUNT(AUTO) 3.91 MIL/uL (4.20-6.10); RED CELL DISTRIBUTION WIDTH 14.5 % (11.6-13.7); WHITE BLOOD COUNT (AUTO) 10.3 K/uL (4.8-10.8)
[2021-12-09] MEDS: ALBUTEROL SULFATE/IPRATROPIU 3 ML SOL IH SCH ×2 (06:59→12:56)
--- NOTE | 2021-12-09 07:00 | NUR ---
RECEIVED PT ON 3L NASAL CANNULA, SAT 99%. NO DISTRESS.
[2021-12-09 07:07] LABS: CHLORIDE 93 mmol/L (98-107); CREATININE 0.5 mg/dL (0.6-1.3); GLUCOSE 122 mg/dL (74-106); POTASSIUM 3.8 mmol/L (3.5-5.1); SODIUM SERUM 142 mmol/L (136-145); UREA NITROGEN, BLOOD 23 mg/dL (7-18)
[2021-12-09 07:08] LABS: ANION GAP -4.2 (8-16)
--- NOTE | 2021-12-09 07:30 | NUR ---
RECEIVED BEDSIDE REPORT FROM MATERIAL MOVER NURSE, PT RESTING, NO DISTRESS NOTED, AWAKE ALERT, ABLE TO LET NEEDS KNOWN, PT ON 3LPM O2 VIA NC, NO SOB NOTED, PT REFUSED IV INSERTION. INITIAL ASSESSMENT DONE, ALL SAFETY PRECAUTION MET, CALL LIGHT WITHIN REACH, WILL CONTINUE TO MONITOR.
[2021-12-09 08:00] VITALS: BP 103/79
[2021-12-09] MEDS: SENNA 8.6 MG TAB PO SCH (08:31)
[2021-12-09] MEDS: ASPIRIN 81 MG TAB.CHEW PO SCH (08:31)
[2021-12-09] MEDS: PANTOPRAZOLE 40 MG TABEC PO SCH (08:31)
[2021-12-09] MEDS: levoFLOXacin 750 MG TAB PO SCH (08:31)
[2021-12-09] MEDS: FUROSEMIDE 20 MG TAB PO SCH (08:32)
[2021-12-09] MEDS: VIT-B COMP/VIT-C/FOLIC ACID 1 TAB PO SCH (08:32)
[2021-12-09] MEDS: DIGOXIN 0.125 MG TAB PO SCH (08:32)
[2021-12-09] MEDS: FOAM DRESSING TP SCH (08:33)
[2021-12-09] MEDS: CYANOCOBALAMIN 100 MCG TAB PO SCH (08:36)
--- NOTE | 2021-12-09 08:36 | NUR ---
DUE MEDICATIONS ADMINISTERED, PT TOLERATED WELL, NO DISTRESS NOTED, WILL CONTINUE TO MONITOR.
[2021-12-09] MEDS ORDERED: IV Levaquin IV (09:20)
[2021-12-09] MEDS ORDERED: SULFAMETH/TRIMETH DS 800/160MG 1 TAB PO SCH (13:05)
--- NOTE | 2021-12-09 13:11 | NUR ---
CALLED PT BROTHER LESLIE RUBIO AT [phone], LEFT MESSAGE REGARDING PT BEING TRANSFERRED BACK TO [facility].
--- NOTE | 2021-12-09 14:11 | NUR ---
CHANGED AND CLEANED PT, WOUND PICTURE TAKEN. PT TOLERATED WELL, WILL CONTINUE TO MONITOR.
--- NOTE | 2021-12-09 14:59 | NUR ---
REPORT GIVEN TO RUDDY STANLEY IN [facility]. PT IS TO BE PICKED UP AT 1600.
--- NOTE | 2021-12-09 16:14 | NUR ---
PT LEFT WITH TRANSPORT IN STABLE CONDITION, NO DISTRESS NOTED. PT TO GO TO [facility] WITH TRANSPORT.
== END 2021-12-09 16:15 | DRG 871 ==
LOC: MED 09:08 → MTU 12:30
PROVIDERS: ADMIT Hospitalist; ATTEND Hospitalist
DX: A41.9 Sepsis, unspecified organism (principal); J96.22 Acute and chronic respiratory failure with hypercapnia; J18.9 Pneumonia, unspecified organism; G93.41 Metabolic encephalopathy; N39.0 Urinary tract infection, site not specified; J44.0 Chronic obstructive pulmonary disease with (acute) lower respiratory infection; E87.3 Alkalosis; Z66 Do not resuscitate; I11.0 Hypertensive heart disease with heart failure; E87.5 Hyperkalemia; D69.6 Thrombocytopenia, unspecified; E86.0 Dehydration; E83.42 Hypomagnesemia; Z20.822 Contact with and (suspected) exposure to COVID-19; L89.151 Pressure ulcer of sacral region, stage 1; G30.9 Alzheimer's disease, unspecified; F02.80 Dementia in other diseases classified elsewhere, unspecified severity, without behavioral disturbance, psychotic disturbance, mood disturbance, and anxiety; M81.0 Age-related osteoporosis without current pathological fracture; I50.9 Heart failure, unspecified; I48.91 Unspecified atrial fibrillation; R65.20 Severe sepsis without septic shock; Z86.73 Personal history of transient ischemic attack (TIA), and cerebral infarction without residual deficits; Z79.899 Other long term (current) drug therapy; Z79.82 Long term (current) use of aspirin
CPT/HCPCS: 36415; 36600; 70450; 71045; 71250; 80048; 80053; 80162; 80305; 81001; 82550; 82803; 83605; 83735; 84100; 84484; 85025; 87040; 87081; 87086; 87186; 93005; 94640; 96365; 96375; 99291; J0696; J1644; J2543; J3370; J7060; Q0092

== ENCOUNTER 2021-12-11 03:35 | Emergency (ER) | payer OTHER ==
[~2021-12-11] VITALS: Ht 175.3 cm; Wt 67.1 kg
[~2021-12-11 03:35] MED LIST changes: +IV Levaquin IV; -METROPOLOL PO; -VITAMIN D PO; -[UNRECOGNIZED DRUG - CODE] PO
--- NOTE | 2021-12-11 03:35 | NUR ---
76 YO/M BIBA FROM [facility] FULL ARREST. CPR IN PROGRESS FOR TOTAL 35 MINS CABLE TOWER OPERATOR. PT INTUBATED IN THE FIELD SIZE 6 ETT, 22 AT [facility]. PT WAS GIVEN 4 ROUNDS OF EPI CABLE TOWER OPERATOR, PT HAS R ARM PICC LINE, R LEG IO. MEDX- EXTENSIVE NKA
--- NOTE | 2021-12-11 03:35 | NUR ---
0332- SHONNA ALS TAKEN TO BED #10
--- NOTE | 2021-12-11 03:35 | NUR ---
REFER TO CODE BLUE SHEET.
[2021-12-11] MEDS ORDERED: DOPPLER MC ONE (03:39)
--- NOTE | 2021-12-11 03:46 | NUR ---
Note favian in ED - 12/11/21 at 0349 by FERNANDO CALLED AND SPOKE TO LESLIE, BROTHER AND POWER OF HOSPICE DIRECTOR. EXPLAINED SITUATION. LESLIE STATED TO HOLD FUTHER LIFE SAVING MEASURES. DNR IS NOT SIGNED SO FAMILY HAS BEEN CONSULTED.
--- NOTE | 2021-12-11 03:46 | NUR ---
CALLED AND SPOKE TO LESLIE, BROTHER AND POWER OF CAN RUNNER. EXPLAINED SITUATION. LESLIE STATED TO HOLD FUTHER LIFE SAVING MEASURES. DNR IS NOT SIGNED SO FAMILY HAS BEEN CONSULTED.
--- NOTE | 2021-12-11 03:51 | NUR ---
time of called by katie lee at [phone].
--- NOTE | 2021-12-11 03:53 | NUR ---
vik has been updated on pt's expiration. states he wanted to inquiry about donating pt's body to medical science. i told him im not too sure how that works but i will look into it and give him a call back.
--- NOTE | 2021-12-11 03:57 | NUR ---
Spoke perico Boateng from [employer], no case number at this time, awaiting call back.
--- NOTE | 2021-12-11 04:00 | NUR ---
Spoke w Nohemy from [employer], per Nohemy pt is not a candidate for tissue donation and released body on their end. Case # [id number].
--- NOTE | 2021-12-11 04:47 | NUR ---
Spoke w Mai Simpson transition teacher cloth grader supervisor, per Mai no case number at this time but is releasing body "mortuary will report later body released by transition teacher."
--- NOTE | 2021-12-11 06:14 | NUR ---
CRISS STEPHEN RN FROM [facility] MADE AWARE OF PT .
--- NOTE | 2021-12-11 06:21 | NUR ---
CRISS W PT BROTHER LESLIE, PER LESLIE NO MORTUARY CHOSEN WILL FIRST CONTACT FACILITY FOR MEDICAL SCIENCE DONATION. PROVIDED LESLIE Samuel [facility] IN [place].
--- NOTE | 2021-12-11 06:53 | NUR ---
PT DOCUMENTS PACKET HANDED TO HOUSE BRITNI FERREIRA.
== END 2021-12-11 03:51 ==
LOC: MED 03:35
DX: I46.9 Cardiac arrest, cause unspecified (principal); J44.9 Chronic obstructive pulmonary disease, unspecified; I50.9 Heart failure, unspecified; G30.9 Alzheimer's disease, unspecified; F02.80 Dementia in other diseases classified elsewhere, unspecified severity, without behavioral disturbance, psychotic disturbance, mood disturbance, and anxiety; Z79.899 Other long term (current) drug therapy; Z79.82 Long term (current) use of aspirin
CPT/HCPCS: 31500; 92950; 99285